=== PATIENT | female | born 1960 | race Caucasian/White ===

== ENCOUNTER → 2018-01-19 17:39 | Outpatient (CLI) | payer MEDICAID, SELFPAY ==
--- NOTE | 2018-01-19 17:39 | DT_ITS ---
This patient was seen during an EMR downtime January 16, 2018 - January 23, 2018. This patient may have a combination of paper and electronic documentation or all paper documentation. All documentation is viewable within the e-chart portion of [facility] for each patient visit.
--- NOTE | 2018-01-19 17:51 | RAD_ITS ---
STUDY: X-RAY - LUMBAR SPINE REASON FOR EXAM: Female, 57 years old. Lower back pain TECHNIQUE: 5 view(s) of the lumbar spine were obtained. COMPARISON: None FINDINGS: Normal lumbar lordosis. There is no substantial scoliosis. There is a normal alignment of the vertebrae. Stool throughout the colon. There are multiple metallic clips in the right upper quadrant. This is consistent for a cholecystectomy. Loss of intervertebral disc height at L5-S1. Vacuum disc phenomenon at L5-S1. There is bilateral facet arthropathy. There is multilevel endplate spondylosis of the lumbar vertebrae. There is multi-level degenerative disc disease with multi-level disc space narrowing. There are atherosclerotic vascular calcifications. The soft tissue structures are unremarkable. RAD/L/S Spine Min 4 Views IMPRESSION: Degenerative changes of the spine, as detailed above. Constipation Electronically Signed: Wayne Souza MD at 18:26 EDT , Service support ,
== END ==
PROVIDERS: Family Provider Internal Medicine; PCP Internal Medicine; Visit Provider Pain Medicine Interventional Pain Medicine
DX: M51.36 Other intervertebral disc degeneration, lumbar region (principal)
CPT/HCPCS: 72110

== ENCOUNTER 2018-01-20 22:25 | Emergency (ER) | payer MEDICAID, SELFPAY ==
--- NOTE | 2018-01-20 22:25 | DT_ITS ---
This patient was seen during an EMR downtime January 16, 2018 - January 23, 2018. This patient may have a combination of paper and electronic documentation or all paper documentation. All documentation is viewable within the e-chart portion of [facility] for each patient visit.
== END 2018-01-20 23:55 | disposition home or self-care (01) ==
LOC: ED 01-21 14:05
PROVIDERS: Emergency Provider Emergency Medicine; Family Provider Internal Medicine; PCP Internal Medicine
DX: H10.212 Acute toxic conjunctivitis, left eye (principal); N30.90 Cystitis, unspecified without hematuria; B96.89 Other specified bacterial agents as the cause of diseases classified elsewhere; I25.10 Atherosclerotic heart disease of native coronary artery without angina pectoris; I25.2 Old myocardial infarction; I10 Essential (primary) hypertension; F41.9 Anxiety disorder, unspecified; Z79.82 Long term (current) use of aspirin; Z79.899 Other long term (current) drug therapy; Z86.73 Personal history of transient ischemic attack (TIA), and cerebral infarction without residual deficits
CPT/HCPCS: 99284

== ENCOUNTER → 2018-10-16 14:11 | Outpatient (CLI) | payer MEDICAID, SELFPAY ==
[2018-10-16 08:29] VITALS: BMI 53.8
[2018-10-16 15:41] LABS: Mucous, Urine 0 SEEN /hpf (<or=2+)
[2018-10-16 16:00] LABS: Color, Urine Yellow (Yellow); Glucose, Dipstick Normal (Normal); Ketone-Dipstick Negative (Negative); Leukocyte Esterase-Dipstick 100 /ul (Negative); Nitrite-Dipstick Negative (Negative); Occult Blood-Urine 10 /ul (Negative); Protein-Dipstick Negative (Negative); Specific Gravity, Urine 1.015 (1.002-1.030); Urine Bilirubin Dipstick Negative (Negative); Urine Clarity Sl. Cloudy (Clear); Urine Urobilinogen Normal (Normal)
[2018-10-16 17:06] LABS: Red Blood Cells-Urine 0-5 SEEN /hpf (0-5); Squamous Epithelial Cells - UA 0-5 SEEN /hpf (5-10)
[2018-10-16 17:07] LABS: Bacteria 1+ /hpf (None Seen); White Blood Cells 10-25 SEEN /hpf (0-5)
== END ==
PROVIDERS: Family Provider Internal Medicine; PCP Internal Medicine; Referring Provider Physician Assistant; Visit Provider Physician Assistant
DX: R30.0 Dysuria (principal)
CPT/HCPCS: 81001; 87086

== ENCOUNTER 2019-12-01 13:27 | Emergency (ER) | payer MEDICAID, SELFPAY ==
[2018-10-16 08:29] VITALS: BMI 53.8
[2019-12-01 13:28] VITALS: BP 113/69; PULSE 69; RESP 18; TEMP 36.6; O2SAT 97; BMI 59.5
--- NOTE | 2019-12-01 13:42 | CT_ITS ---
STUDY: CT ABDOMEN AND PELVIS WITH CONTRAST REASON FOR EXAM: Female, 59 years old. RLQ pain x few days, nausea. Prior cholecystectomy, hypertension. RADIATION DOSAGE (If Supplied By Facility): CTDIvol = ( 40.91 ) mGy, DLP = ( 1956.19 ) mGycm TECHNIQUE: Transaxial images were obtained from the dome of the diaphragm to the symphysis pubis with oral contrast. Oral and amp; IV Gastrografin and amp; 100mL Isovue-370 was administered. Sagittal and coronal images were reconstructed. Individualized dose optimization techniques were used for this CT. COMPARISON: 09/07/2017. FINDINGS: The visualized lung bases are unremarkable. The visualized portions of the heart are within normal limits. There is decreased attenuation of the liver consistent with steatosis. There is hepatomegaly. There are surgical clips in the gallbladder fossa consistent with a prior cholecystectomy. There is moderate splenomegaly. Normal pancreas. Normal bilateral adrenal glands. Normal right kidney. Normal left kidney. Normal visualized stomach. Normal small intestine. Fecal retention throughout the colon. The appendix is visualized and appears normal. Normal abdominal aorta. Normal inferior vena cava. Normal retroperitoneum. Normal urinary bladder. Normal visualized uterus. Normal abdominal wall. There are diffuse degenerative changes of the visualized lumbar spine. CT/Abdomen/Pelvis WITH Contrast IMPRESSION: Hepatosplenomegaly. No definite acute abnormalities. Electronically Signed: Andrzej Holloway MD at 17:02 EDT , Service support ,
--- NOTE | 2019-12-01 13:43 | ED.VIS.GEN ---
History of Present Illness Chief Complaint: Abd Pain Informant: Patient Onset: Days Context: Gradual Onset - 3 days Timing: Waxes and wanes Current Severity: Mild Maximum Severity: Moderate Narrative: Patient presents from urgent care secondary to right lower quadrant abdominal pain. She states 3 days ago she developed more mid abdominal pain initially that she thought was just nausea. Pain is now localized more to the right lower quadrant. She denies fever but has had some mild chills. She has had decreased p.o. intake and decreased appetite. She was seen at urgent care where urine was tested and unremarkable. She was sent to the ER to rule out appendicitis. - Past Medical History (1) CVA (cerebral vascular accident) Status: Chronic (2) Dyslipidemia Status: Chronic (3) Hypertension Status: Chronic (4) Prediabetes Status: Chronic (5) Hx of cholecystectomy Status: Chronic Past Medical History - Allergies and Home Meds Allergies/Adverse Reactions: Allergies nitrofurantoin [From Macrobid] Allergy (Verified 12/01/19 13:28) Unknown propoxyphene [From Darvocet-N] Allergy (Verified 12/01/19 13:28) Unknown cefaclor [From Ceclor] Adverse Reaction (Verified 12/01/19 13:28) Other Primary Care Physician: Keila Sullivan MD [Primary Care Provider] - Prior records reviewed: Yes Smoking Status: Current every day smoker - Family History Paternal Family History: Family History (Last Updated 10/16/18 @ 08:32 by Esha Hardin) Other Cancer Heart disease Family History: Reports: Heart Disease - Her father had first VT in late 60s. Sibling Family History: Family History (Last Updated 10/16/18 @ 08:32 by Esha Hardin) Other Cancer Heart disease Family History: Reports: Heart Disease - Her 2 brothers had MIs in 50s. Review of Systems General: Denies: Chills, Fever Eyes: Denies: Visual changes - bilaterally ENT: Denies: Bilateral ear pain Cardiovascular: Denies: Chest pain Respiratory: Denies: Dyspnea, Cough Gastrointestinal: Reports: Abdominal pain, Nausea. Denies: Vomiting, Diarrhea Genitourinary: Denies: Dysuria, Hematuria Musculoskeletal: Denies: Extremity Pain Skin: Denies: Rash Neurological: Denies: Headache Hematologic: Denies: Easy bruising, Easy bleeding Allergy: Denies: Uticaria Physical Exam Vital Signs/Narrative: Vital Signs Temp Pulse Resp BP Pulse Ox 12/01/19 13:28 97.9 F 69 18 113/69 97 Inital Vital Signs reviewed: Yes General: Well nourished, Well developed Head: Normocephalic ENT: Moist mucous membranes Neck: Supple Cardiovascular: Regular rate, Regular rhythm Respiratory: No distress, CTA bilaterally Abdomen: Soft, Tender - Mild tenderness in the right lower quadrant., Hypoactive bowel sounds. Negative for: Guarding, Rebound tenderness Extremities: Nontender Skin: Normal color, No rash Neurological: Alert, Oriented x3 Psychological: Normal affect Diagnostic/Tx/Re-eval Impressions Abdomen/Pelvis CT 12/01/19 13:42 IMPRESSION: Hepatosplenomegaly. No definite acute abnormalities. Electronically Signed: Andrzej Holloway MD at 17:02 EDT , Service support , 12/01/19 13:42 Abdomen/Pelvis WITH Contrast [CT] Stat Laboratory Results 12/01/19 12/01/19 14:04 14:04 WBC 7.3 RBC 4.30 Hgb 10.7 L Hct 35.1 L MCV 81.6 MCH 24.9 L MCHC 30.5 L RDW Std Deviation 48.2 H RDW Coeff of Tracey 16.3 H Plt Count 223 MPV 9.2 Immature Gran % (Auto) 0.600 Neut % (Auto) 55.5 Lymph % (Auto) 33.0 [place] % (Auto) 9.4 Eos % (Auto) 1.2 Baso % (Auto) 0.3 Absolute Neuts (auto) 4.0 Absolute Lymphs (auto) 2.39 Nucleated RBC % 0 Sodium 140 Potassium 4.5 Chloride 106 Carbon Dioxide 28.0 Anion Gap 6 BUN 12 Creatinine 0.75 Estim Creat Clear Calc 77.57 Est GFR (MDRD) Af Amer 101 Est GFR (MDRD) Non-Af 84 BUN/Creatinine Ratio 16.0 Glucose 115 H Calcium 8.6 - Medical Decision Making Patient declined anything for pain while here. Urine was checked at the clinic and revealed no acute infection. Test results discussed with the patient. She will continue to follow bland diet. She will monitor for fever, worsening pain, vomiting, etc. If she continues to have any urinary symptoms she should have her urine rechecked in 3 days. ED Disposition - Plan for ED Patient: Disposition: Home or Assisted Living Diagnosis: Abdominal pain Instructions: ED Abdominal Pain Unkn Cause Fem Referrals: Keila Sullivan MD [Primary Care Provider] - 3-5 Days if not improving
[2019-12-01] MEDS: 0.9% Normal Saline 1,000 ML 150 ML IV (14:03)
[2019-12-01 14:08] LABS: Absolute Lymphocyte Count 2.39 X10^3/uL (0.83-4.51); Basophil# 0.02 X10^3/uL; Basophil% 0.3 % (0-1); Eosinophil# 0.09 X10^3/uL; Eosinophils% 1.2 % (0-5); Hematocrit 35.1 % (37-47); Hemoglobin 10.7 g/dL (12.0-15.0); Lymphocyte # 2.39 X10^3/ul (4.0); Mean Corp Hgb Conc 30.5 g/dL (32-36); Mean Corpuscular Hgb 24.9 pg (27.0-32.0); Mean Corpuscular Volume 81.6 fL (81-99); Mean Platelet Vol. 9.2 fl (6.2-12.0); Monocyte# 0.68 X10^3/uL; Monocyte% 9.4 % (0-10); NRBC Flagged by Analyzer 0 % (0-5); Neutrophil # 4.03 X10^3/uL (2.7-7.7); Neutrophil % 55.5 % (47-70); Platelet Count 223 K/mm3 (150-450); RBC Distribution Width CV 16.3 % (11.6-14.6); RBC Distribution Width SD 48.2 fl (35.1-43.9); White Blood Count 7.3 K/mm3 (4.4-11.0)
[2019-12-01 14:21] LABS: Anion Gap 6 (5-15); BUN 12 mg/dL (7-18); Calcium,Total 8.6 mg/dL (8.5-10.1); Chloride 106 mmol/L (98-107); Creatinine, Serum 0.75 mg/dL (0.55-1.02); EST Glomerular Filtration Rate 84 mL/min (>60); Est Glom Filt Rate - Afr Amer 101 mL/min (>60); Estimated Creatinine Clearance 77.57 ml/min; Glucose 115 mg/dL (74-106); Potassium 4.5 mmol/L (3.5-5.1); Sodium Level 140 mmol/L (136-145)
[2019-12-01 15:48] VITALS: RESP 16
[2019-12-01 17:14] VITALS: BP 101/70; PULSE 66; RESP 16; RESP 18; O2SAT 97
--- NOTE | 2019-12-01 17:16 | ED.RN ---
REVIEWED D/C INSTRUCTIONS, FOLLOW UP CARE, AND S/S THAT WOULD WARRANT A RETURN TO THE ED WITH PT. PT VERBALIZED AN UNDERSTANDING AND DENIES FURTHER QUESTIONS FOR THIS RN. PT SKIN P/W/D, RESP EVEN AND UNLABORED, PT A&O X 3, NO DISTRESS NOTED. PT AMBULATED OUT OF ED, GAIT STEADY.
== END 2019-12-01 17:20 | disposition home or self-care (01) ==
PROVIDERS: Emergency Provider Emergency Medicine; PCP Internal Medicine
DX: R10.31 Right lower quadrant pain (principal); I10 Essential (primary) hypertension; E78.5 Hyperlipidemia, unspecified; R73.03 Prediabetes; F17.200 Nicotine dependence, unspecified, uncomplicated; Z90.49 Acquired absence of other specified parts of digestive tract; Z86.73 Personal history of transient ischemic attack (TIA), and cerebral infarction without residual deficits
CPT/HCPCS: 74177; 80048; 85025; 96360; 96361; 99283; J7030; Q9967; A4216

== ENCOUNTER → 2021-07-02 16:06 | Outpatient (CLI) | payer MEDICAID, SELFPAY ==
--- NOTE | 2021-07-02 16:12 | EKG12_ITS ---
Test Reason : EVALUATE QT INTERVAL Blood Pressure : / mmHG Vent. Rate : 062 BPM Atrial Rate : 062 BPM P-R Int : 192 ms QRS Dur : 080 ms QT Int : 400 ms P-R-T Axes : 055 -02 025 degrees QTc Int : 406 ms Normal sinus rhythm Normal ECG Confirmed by PATTIE SEPULVEDA, ROOSEVELT ([id number]), social media editor [employer]ST[employer] PIERSON ([id number]) on 07/03/2021 1:51:10 P M Referred By: Kenneth Mccracken Confirmed By:PIERRE BLANKENSHIP MD
== END ==
PROVIDERS: PCP Internal Medicine; Referring Provider Pain Medicine Interventional Pain Medicine; Visit Provider Pain Medicine Interventional Pain Medicine
DX: Z13.6 Encounter for screening for cardiovascular disorders (principal)
CPT/HCPCS: 93005

== ENCOUNTER 2021-08-14 10:54 | Emergency (ER) | payer MEDICAID, SELFPAY ==
[2021-08-14 10:54] VITALS: BP 109/53; PULSE 67; RESP 20; TEMP 37.4; O2SAT 97; BMI 49.3
[2021-08-14 11:52] VITALS: O2SAT 94
--- NOTE | 2021-08-14 12:02 | RAD_ITS ---
STUDY: X-RAY CHEST REASON FOR EXAM: Female, 61 years old. Cough. TECHNIQUE: Single AP portable view of the chest. COMPARISON: 01/20/2017. FINDINGS: The lungs are clear and expanded. There is no demonstrated pleural abnormality. Normal size heart. Normal mediastinum and katie. Normal visualized pulmonary arteries. Mild tortuosity of the thoracic aorta. No demonstrated acute osseous changes. There is no demonstrated abnormality of the visualized soft tissue structures of the upper abdomen. RAD/Chest 1 View (Portable) IMPRESSION: No active pulmonary disease. Electronically Signed: Wang Ramos, at 12:48 EST Tel , Service support ,
--- NOTE | 2021-08-14 12:02 | EX.ED.VIS.UR ---
HPI HPI - URI History of Present Illness Chief Complaint: Shortness of Breath Detail of Chief Complaint: Cough, fever, shortness of breath Informant: patient Narrative Narrative: Patient presents to the emergency department with 3-day history of Covid symptoms. Patient states that she has been taking care of her daughter who had Covid. Patient is fully vaccinated but has not had her booster. Patient has history of sarcoid and obstructive sleep apnea as well as hypertension. She complains of pain in her chest with cough. Patient complains of sore throat and intermittent headaches. She complains of intermittent fever and myalgias. Prior similar symptoms: No ROS ROS ED Constitutional Constitutional ED: Reports systems reviewed and no addt'l complaints, except as documented, chills, fever(s) and sweats; Denies body ache(s) or change in weight Eyes Eyes: Denies acute decrease in peripheral vision, change in vision, double vision or loss of vision ENT ENT ED: Reports none; Denies ear pain, lip swelling, loss taste/smell, neck pain, otalgia or sore throat Cardiovascular Cardiovascular: Reports none and chest pain; Denies abdominal pain, chest pain with activity, leg edema, lightheadedness, palpitations, rapid heart rate or syncope Respiratory/Chest Respiratory/Chest: Reports none, cough and dyspnea; Denies change in mental status, dry cough, hemoptysis, shortness of breath at rest or shortness of breath with exertion Gastrointestinal Gastrointestinal: Reports none; Denies abdominal pain, change in stool character, diarrhea, hematemesis, hematochezia, melena, rectal bleeding or vomiting Genitourinary Genitourinary ED: Reports none; Denies abdominal discomfort, anuria, dysuria, genital pain or polyuria Musculoskeletal Musculoskeletal: Reports none and myalgias; Denies arthralgias, back pain, difficulty walking, extremity pain or muscle weakness Integumentary Reports none; Denies abscess or rash Neurologic Neurologic: Reports none and headache(s); Denies abnormal gait, confusion, focal weakness, frequent falls, loss of vision, numbness, paresthesias, radicular pain, vertigo or weakness Psychiatric Psychiatric: Reports systems reviewed and no addt'l complaints, except as documented and none; Denies behavioral changes, confusion, difficulty concentrating, hallucinations, suicidal ideation, tactile hallucinations or visual hallucinations Endocrine Endocrinology: Denies none, cold intolerance, excessive sweating, fatigue or heat intolerance Hematologic/Lymphatic Hematologic/Lymphatic: Reports none; Denies anemia, easy bleeding or easy bruising Allergic/Immunologic Allergic/Immunologic ED: Denies as per HPI, none, lip swelling, mouth swelling, throat swelling, tongue swelling or hives PFSH [facility] Medical History (Updated 08/14/21 @ 13:[address] Olivier Hope, DO) Chronic neck and back pain Heart disease Hypertension Incontinence Knee pain Lung disease Stomach ulcer Stroke Home Medications Omeprazole [Prilosec] 40 mg PO DAILY 11/29/16 [History Last Taken Unknown] acyclovir [Zovirax] 400 mg PO BID PRN 11/29/16 [History Last Taken Unknown] bupropion HCl [Wellbutrin XL] 150 mg PO QHS 11/29/16 [History Last Taken Unknown] hydrocodone-acetaminophen [[place]] 1 ea PO TID PRN 11/29/16 [History Last Taken Unknown] lisinopril 20 mg PO DAILY 11/29/16 [History Last Taken Unknown] lorazepam 1 mg PO DAILY PRN PRN 11/29/16 [History Last Taken Unknown] methadone 10 mg PO TID 11/29/16 [History Last Taken Unknown] oxybutynin chloride 5 mg PO BID 11/29/16 [History Last Taken Unknown] paroxetine HCl 20 mg PO DAILY 11/29/16 [History Last Taken Unknown] promethazine 25 mg PO Q6H PRN PRN 11/29/16 [History Last Taken 01/19/17 23:00] ondansetron 4 mg PO Q8H PRN PRN #10 tab 01/20/17 [Rx Last Taken Unknown] phenazopyridine 100 mg PO TID PRN 01/20/17 [History Last Taken 01/20/17] aspirin 81 mg PO QHS 06/17/17 [History Last Taken Unknown] Propranolol Hcl [Propranolol Hcl Er] 60 mg PO DAILY 12/01/19 [History Last Taken Unknown] benzonatate 200 mg PO TID PRN 12/01/19 [History Last Taken Unknown] furosemide 20 mg PO DAILY PRN 12/01/19 [History Last Taken Unknown] ipratropium-albuterol 3 ml INHALATION Q4H PRN PRN 12/01/19 [History Last Taken Unknown] magnesium chloride 2 tab PO DAILY 12/01/19 [History Last Taken Unknown] mupirocin 1 applic TOPICAL TID 12/01/19 [History Last Taken Unknown] potassium chloride 10 meq PO DAILY PRN 12/01/19 [History Last Taken Unknown] Allergy/AdvReac Type Severity Reaction Status Date / Time nitrofurantoin Allergy Unknown Verified 08/14/21 10:58 [From Macrobid] propoxyphene Allergy Unknown Verified 08/14/21 10:58 [From Darvocet-N] cefaclor [From Ceclor] AdvReac Other Verified 08/14/21 10:58 Family History (Updated 10/16/18 @ 08:32 by Esha Hardin) Other Cancer Heart disease Surgical History History of cholecystectomy History of hysterectomy History of knee surgery Social History (Updated 10/16/18 @ 08:51 by Duncan SLAUGHTER, PA) Smoking Status: Current every day smoker tobacco type: cigarettes EXAM Physical Exam Const Vital Signs: 08/14/21 10:54 08/14/21 11:52 08/14/21 12:18 Temperature 99.4 F H 98.9 F Temperature Source Oral Temporal Pulse Rate 67 63 Respiratory Rate 20 H 26 H Respiratory Effort Normal Non-Labored Respiratory Depth Normal Respiratory Pattern Normal Blood Pressure 109/53 L 120/81 H Blood Pressure Mean 71 94 Pulse Ox 97 95 Oxygen Delivery Method Room Air Room Air Room Air Positive well nourished and well developed General Appearance ED: well developed and NAD HEENT Reports TM's clear and moist mucous membranes normocephalic and atraumatic; Negative for trauma or tenderness Tympanic Membrane ED: Yes TM's clear Eyes PERRL and EOMs intact bilaterally General Eye ED: Negative for pale conjunctiva or scleral icterus Neck no lymphadenopathy, supple and no JVD General: Negative for tenderness Chest Wall inspection of chest normal and palpation of chest normal Chest: Negative for tenderness Resp normal respiratory effort and clear to auscultation bilaterally Effort and Inspection: Negative for respiratory distress or pain with movement Auscultation: Negative for rhonchi, wheezes or diminished lung sounds Cardio regular rate, regular rhythm, S1 normal heart sound, S2 normal heart sound and no murmurs Peripheral Pulses: pulses 2+ throughout GI normal to inspection, nondistended, normoactive bowel sounds, soft to palpation, non-tender, non-distended and no masses GI Narrative: Patient morbidly obese Back/Spine no CVA tenderness and no thoracic nor lumbar tenderness Extremity normal to inspection General Extremety ED: Negative for edema General Extremity: Negative for edema Neuro oriented x3, CN's II-XII intact bilaterally, no sensory deficits noted and gait normal Sensorium / Orientation: awake, alert, oriented to person, oriented to place and oriented to time Motor Exam: strength 5/5 throughout and strength abnormal Psych mental status grossly normal Skin no rashes or lesions noted and no wounds MDM MDM MDM Narrative Medical decision making narrative: Patient had a Covid test that was positive. Her chest x-ray was unremarkable. Her vital signs are stable and she is not hypoxic. I feel she can be referred for monoclonal antibodies and discharged to home. Patient advised to return if increasing shortness of breath or conditions worsen anyway. Lab Data Attestation: I reviewed the patient's lab results. Radiography Diagnostic Testing: Clinical Impression(s) from Imaging Studies Chest X-Ray 08/14/21 12:02 IMPRESSION: No active pulmonary disease. Electronically Signed: Wang Ramos, at 12:48 EST Tel , Service support , 1 view chest x-ray obtained interpreted by myself as no acute disease process. Radiology in agreement. Discharge Plan Triage Chief Complaint: Shortness of Breath ED Provider: Olivier Hope Dx/Rx/DC Orders Clinical Impression: COVID-19 Instructions: ED - COVID Monoclonal AB Infusion ..., Caring for Someone Who Has COVID-19 Prescriptions: No Action methadone 10 MG tablet 10 mg PO TID RF: 0 lisinopril 20 MG tablet 20 mg PO DAILY RF: 0 acyclovir [Zovirax] 400 MG tablet 400 mg PO BID PRN (Reason: Not Specified) RF: 0 hydrocodone-acetaminophen [[place]] 1 TABLET tablet 1 ea PO TID PRN (Reason: Pain) RF: 0 paroxetine HCl 20 MG tablet 20 mg PO DAILY RF: 0 promethazine 25 MG tablet 25 mg PO Q6H PRN PRN (Reason: Nausea) RF: 0 lorazepam 1 MG tablet 1 mg PO DAILY PRN PRN (Reason: Anxiety) RF: 0 oxybutynin chloride 5 MG tablet 5 mg PO BID RF: 0 bupropion HCl [Wellbutrin XL] 150 MG Tab.Er.24h 150 mg PO QHS RF: 0 Omeprazole [Prilosec] 40 MG capsule 40 mg PO DAILY RF: 0 phenazopyridine 100 MG tablet 100 mg PO TID PRN (Reason: URINE ISSUES) RF: 0 ondansetron 4 MG tablet 4 mg PO Q8H PRN PRN (Reason: Nausea) Qty: 10 RF: 0 aspirin 81 MG tablet 81 mg PO QHS RF: 0 potassium chloride 10 MEQ capsule, extended release 10 meq PO DAILY PRN (Reason: LOW POTASSIUM) RF: 0 ipratropium-albuterol 3 ML solution for nebulization 3 ml inhalation Q4H PRN PRN (Reason: Sob &/Or Wheezing) RF: 0 benzonatate 200 MG capsule 200 mg PO TID PRN (Reason: Cough) RF: 0 mupirocin 1 APPLIC ointment 1 applic topical TID RF: 0 furosemide 20 MG tablet 20 mg PO DAILY PRN (Reason: EDEMA) RF: 0 magnesium chloride 71.5 MG tablet,delayed release (DR/EC) 2 tab PO DAILY RF: 0 Propranolol Hcl [Propranolol Hcl Er] 60 MG Cap.Sa.24h 60 mg PO DAILY RF: 0 Primary Care Provider: Keila Sullivan Referrals: Keila Sullivan MD [Primary Care Provider] - 5-7 Days Disposition Disposition: Home, Self Care
[2021-08-14 12:18] VITALS: BP 120/81; PULSE 63; RESP 26; TEMP 37.2; O2SAT 95
[2021-08-14 13:28] VITALS: BP 100/50; PULSE 68; RESP 23; O2SAT 95
[2021-08-14 13:29] VITALS: BP 100/50; PULSE 68; RESP 23; O2SAT 95
== END 2021-08-14 13:29 | disposition home or self-care (01) ==
PROVIDERS: Emergency Provider Emergency Medicine; PCP Internal Medicine
DX: U07.1 COVID-19 (principal); I11.9 Hypertensive heart disease without heart failure; F17.210 Nicotine dependence, cigarettes, uncomplicated; Z79.82 Long term (current) use of aspirin; Z79.899 Other long term (current) drug therapy
CPT/HCPCS: 71045; 87426; 99282

== ENCOUNTER 2021-08-17 13:14 | Outpatient (CLI) | payer MEDICAID, SELFPAY ==
[2021-08-17] MEDS: 0.9% Saline Lock 10 ML Syringe IV (13:26)
[2021-08-17 13:28] VITALS: BP 113/53; PULSE 73; RESP 20; TEMP 36.8; O2SAT 94; BMI 54.8
[2021-08-17 13:57] VITALS: BP 108/61; PULSE 62; RESP 16; TEMP 36.8; O2SAT 95
[2021-08-17 15:06] VITALS: BP 119/62; PULSE 59; RESP 16; TEMP 37.1; O2SAT 94
== END 2021-08-17 23:59 | disposition home or self-care (01) ==
LOC: MS3OUT 13:14 → MS3 13:16
PROVIDERS: PCP Internal Medicine; Referring Provider Emergency Medicine; Visit Provider Emergency Medicine
DX: U07.1 COVID-19 (principal)
CPT/HCPCS: J7050; M0243; A4216; Q0244

== ENCOUNTER 2021-09-27 21:07 | Emergency (ER) | payer MEDICAID, SELFPAY ==
[2021-09-27 21:08] VITALS: BP 130/66; PULSE 65; RESP 17; TEMP 36.1; O2SAT 95; BMI 54.8
--- NOTE | 2021-09-27 21:21 | EKG12_ITS ---
Test Reason : DYSRYTHMIA Blood Pressure : / mmHG Vent. Rate : 058 BPM Atrial Rate : 058 BPM P-R Int : 192 ms QRS Dur : 086 ms QT Int : 434 ms P-R-T Axes : 002 007 027 degrees QTc Int : 426 ms Sinus bradycardia Nonspecific T wave abnormality Abnormal ECG Confirmed by JOHNNA SEPULVEDA, JOHNNY ([id number]), editor trade journal [employer]ST[employer] PIERSON ([id number]) on 09/29/2021 12:53:39 PM Referred By: RUTH Confirmed By:JOHNNY OROPEZA MD
--- NOTE | 2021-09-27 21:22 | EDS_ITS ---
HPI History of Present Illness Chief Complaint: Edema Narrative Narrative: Patient with past medical history of hypertension, chronic back pain. Was diagnosed with Covid over a month ago, and has morbid obesity presents with swelling of her legs that she noticed today. She states that she had swelling of her legs previously and used to take Lasix on occasion. She was going to take a tablet today even though she has not had to take that in quite some time. She also noticed that her left lower extremity was slightly reddened. She denies any fevers or chills. She has consistent cough from her Covid diagnosis of over a month ago. Additionally, she states that she does not feel any more short of breath. She denies history of CHF. She is concerned because both her legs have swollen up, and the left one has become slightly reddened. [facility] Medical History Chronic neck and back pain COVID COVID-19 Heart disease Hypertension Incontinence Knee pain Lung disease Stomach ulcer Stroke Home Medications Omeprazole [Prilosec] 40 mg PO DAILY 11/29/16 [History Last Taken Unknown] acyclovir [Zovirax] 400 mg PO BID PRN 11/29/16 [History Last Taken Unknown] bupropion HCl [Wellbutrin XL] 150 mg PO QHS 11/29/16 [History Last Taken Unknown] hydrocodone-acetaminophen [Fulton] 1 ea PO TID PRN 11/29/16 [History Last Taken Unknown] lisinopril 20 mg PO DAILY 11/29/16 [History Last Taken Unknown] lorazepam 1 mg PO DAILY PRN PRN 11/29/16 [History Last Taken Unknown] methadone 10 mg PO TID 11/29/16 [History Last Taken Unknown] oxybutynin chloride 5 mg PO BID 11/29/16 [History Last Taken Unknown] paroxetine HCl 20 mg PO DAILY 11/29/16 [History Last Taken Unknown] promethazine 25 mg PO Q6H PRN PRN 11/29/16 [History Last Taken 01/19/17 23:00] ondansetron 4 mg PO Q8H PRN PRN #10 tab 01/20/17 [Rx Last Taken Unknown] phenazopyridine 100 mg PO TID PRN 01/20/17 [History Last Taken 01/20/17] aspirin 81 mg PO QHS 11/03/17 [History Last Taken Unknown] Propranolol Hcl [Propranolol Hcl Er] 60 mg PO DAILY 12/01/19 [History Last Taken Unknown] benzonatate 200 mg PO TID PRN 12/01/19 [History Last Taken Unknown] furosemide 20 mg PO DAILY PRN 12/01/19 [History Last Taken Unknown] magnesium chloride 2 tab PO DAILY 12/01/19 [History Last Taken Unknown] potassium chloride 10 meq PO DAILY PRN 12/01/19 [History Last Taken Unknown] furosemide 20 mg PO DAILY #5 tab 09/27/21 [Rx Last Taken Unknown] Allergy/AdvReac Type Severity Reaction Status Date / Time nitrofurantoin Allergy Unknown Verified 08/14/21 10:58 [From Macrobid] propoxyphene Allergy Unknown Verified 08/14/21 10:58 [From Darvocet-N] cefaclor [From Ceclor] AdvReac Other Verified 08/14/21 10:58 Family History Mother Cancer Father Cancer Heart disease Myocardial infarction Brother Heart disease Myocardial infarction Surgical History History of cholecystectomy History of hysterectomy History of knee surgery Social History Smoking Status: Current every day smoker tobacco type: cigarettes ROS ROS ED ROS Narrative Constitutional: No fever, no chills. HEENT: No sore throat. No neck pain. No loss of vision. No rhinorrhea. Cardiovascular: No chest pain. No palpitations. Adderall pedal edema. Respiratory: No cough, no shortness of breath. Abdominal: No abdominal pain. No nausea. No vomiting. Genitourinary: No dysuria. No hematuria. Musculoskeletal: No myalgias. No arthralgias. Neurologic: No headaches. No dizziness. No lightheadedness. Skin: No rash. Positive redness/change in color left lower extremity below knee. Psychiatric: No depression. No anxiety. EXAM Physical Exam Narrative Exam Narrative: Afebrile. Vital signs noted. HEENT: Normocephalic. Atraumatic. PERRL, EOMI. Neck soft and supple. No point tenderness or step off. Cardiovascular: Regular rate and rhythm. No murmurs, rubs, or gallops appreciated. Respiratory: No tachypnea. Lungs clear to auscultation bilaterally. Gastrointestinal: Abdomen soft, obese, nontender, with normoactive bowel sounds. No rebound or guarding. Neurological: Awake. Alert. Nonfocal, nonlateralizing. Skin: No rash. Normal color. No pallor. Beginnings of chronic skin changes left lower extremity, nonblanching, mildly erythematous Musculoskeletal: Bilateral pedal edema. Full range of motion extremities. Const Vital Signs: 09/27/21 21:08 09/27/21 21:16 09/27/21 23:45 Temperature 96.9 F L Temperature Source Temporal Pulse Rate 65 85 Respiratory Rate 17 15 Respiratory Effort Normal Respiratory Pattern Normal Blood Pressure 130/66 H Blood Pressure Mean 87 Pulse Ox 95 99 Oxygen Delivery Method Room Air MDM MDM MDM Narrative Medical decision making narrative: CHF work-up was pursued as this is new for her. I will obtain an EKG, troponin, basic laboratory work, and BNP along with chest x-ray. This may be the beginnings of cellulitis of her left lower extremity. EKG demonstrates normal sinus rhythm at 50 bpm without ectopy or acute ST changes. I read her chest x-ray has no acute process. She has normal white count of 6.0. Hemoglobin stable at 11.8, platelet count normal at 200. Electrolyte panel is grossly unremarkable. Potassium normal at 4.6. Creatinine normal at 0.9. High-sensitivity troponin is normal at 4. BNP is also normal at 43. Upon repeat evaluation, the redness of her left lower extremity is not confluent, not consistent with cellulitis. Additionally, there are more punctate lesions that are nonblanching. I do think that this may be more broken capillaries. I do feel she may be developing chronic skin changes from her lymphedema. She states that she is supposed to be wearing compression stockings but is not. I will give her 5 days worth of Lasix which she takes whenever she has swelling of her legs, but she was told that this may be secondary to chronic venous insufficiency versus obesity. I do not feel antibiotics are indicated. Her daughter was concerned more with the possibility of blood clots. However, her swelling is symmetric. Regardless, she was written a prescription for bilateral lower extremity Dopplers as on outpatient. She states that she has potassium supplementation at home. She was told to take this along with her magnesium when she is taking Lasix for the next 5 days. She will follow up with her primary care physician. I feel she can be discharged safely home with follow-up. Return instructions to the emergency department were reviewed. Disposition is discharged home in stable condition. Lab Data Attestation: I reviewed the patient's lab results. Labs: Laboratory Results - last 24 hr 09/27/21 09/27/21 09/27/21 21:39 21:39 21:39 WBC 6.0 RBC 4.24 Hgb 11.8 L Hct 36.2 L MCV 85.4 MCH 27.8 MCHC 32.6 RDW Std Deviation 40.8 RDW Coeff of Tracey 13.3 Plt Count 200 MPV 9.3 Immature Gran % (Auto) 0.800 Neut % (Auto) 48.1 Lymph % (Auto) 36.6 Teller % (Auto) 9.8 Eos % (Auto) 4.0 Baso % (Auto) 0.7 Absolute Neuts (auto) 2.9 Absolute Lymphs (auto) 2.19 Nucleated RBC % 0 Sodium 137 Potassium 4.6 Chloride 107 Carbon Dioxide 25.0 Anion Gap 5 BUN 17 Creatinine 0.90 Estim Creat Clear Calc 63.03 Est GFR (MDRD) Af Amer 82 Est GFR (MDRD) Non-Af 67 BUN/Creatinine Ratio 18.9 Glucose 121 H Calcium 8.9 Troponin I High Sens 4 B-Natriuretic Peptide 43.9 Radiography Diagnostic Testing: Clinical Impression(s) from Imaging Studies Chest X-Ray 09/27/21 21:40 IMPRESSION: 1. Subtle increased attenuation right lower lobe with somewhat linear opacity suspected to represent atelectasis with mild asymmetric right sided asymmetric diaphragm elevation. Infectious etiology is not completely excluded. Electronically Signed: Parag Flores DO at 0:14 EST , Discharge Plan Triage Chief Complaint: Edema ED Provider: Memo Kitchen Dx/Rx/DC Orders Clinical Impression: Pedal edema, Lymphedema due to venous insufficiency, Lymphedema associated with obesity Instructions: ED Peripheral Edema, Bilateral, ED Lymphedema Prescriptions: New furosemide 20 mg tablet 20 mg PO DAILY Qty: 5 RF: 0 No Action methadone 10 MG tablet 10 mg PO TID RF: 0 lisinopril 20 MG tablet 20 mg PO DAILY RF: 0 acyclovir [Zovirax] 400 MG tablet 400 mg PO BID PRN (Reason: Not Specified) RF: 0 hydrocodone-acetaminophen [Fulton] 1 TABLET tablet 1 ea PO TID PRN (Reason: Pain) RF: 0 paroxetine HCl 20 MG tablet 20 mg PO DAILY RF: 0 promethazine 25 MG tablet 25 mg PO Q6H PRN PRN (Reason: Nausea) RF: 0 lorazepam 1 MG tablet 1 mg PO DAILY PRN PRN (Reason: Anxiety) RF: 0 oxybutynin chloride 5 MG tablet 5 mg PO BID RF: 0 bupropion HCl [Wellbutrin XL] 150 MG tablet extended release 24 hr 150 mg PO QHS RF: 0 Omeprazole [Prilosec] 40 MG capsule 40 mg PO DAILY RF: 0 phenazopyridine 100 MG tablet 100 mg PO TID PRN (Reason: URINE ISSUES) RF: 0 ondansetron 4 MG tablet 4 mg PO Q8H PRN PRN (Reason: Nausea) Qty: 10 RF: 0 aspirin 81 MG tablet 81 mg PO QHS RF: 0 potassium chloride 10 MEQ capsule, extended release 10 meq PO DAILY PRN (Reason: LOW POTASSIUM) RF: 0 benzonatate 200 MG capsule 200 mg PO TID PRN (Reason: Cough) RF: 0 furosemide 20 MG tablet 20 mg PO DAILY PRN (Reason: EDEMA) RF: 0 magnesium chloride 71.5 MG tablet,delayed release (DR/EC) 2 tab PO DAILY RF: 0 Propranolol Hcl [Propranolol Hcl Er] 60 MG Cap.Sa.24h 60 mg PO DAILY RF: 0 Other Ambulatory Orders: US Art Duplex Bilat Lower Ext (Routine) Facility: [facility] - Location: [facility] Ordered By: Memo Kitchen Primary Care Provider: Keila Sullivan Referrals: Keila Sullivan MD [Primary Care Provider] - 1-2 Weeks Disposition Disposition: Home, Self Care Discharge Date/Time: 09/27/21 23:46
--- NOTE | 2021-09-27 21:40 | RAD_ITS ---
INDICATION: shortness of breath EXAMINATION/TECHNIQUE: X-RAY - XR Chest 1 View COMPARISON: 08/14/2021 chest X-ray FINDINGS: LINES/DEVICES: None. LUNGS: Subtle increased attenuation right lower lobe with linear opacity may represent atelectasis with note of mild asymmetric elevation right hemidiaphragm compared to the left. Lungs otherwise clear. Normal pulmonary interstitial pattern. No nodule or mass. No pleural effusion or pneumothorax. MEDIASTINUM AND CARDIOVASCULAR STRUCTURES: Normal size and contour of the cardiomediastinal silhouette. No evidence of pulmonary vascular congestion. BONES AND SOFT TISSUES: No abnormality within limits of the exam. RAD/Chest 1 View (Portable) IMPRESSION: 1. Subtle increased attenuation right lower lobe with somewhat linear opacity suspected to represent atelectasis with mild asymmetric right sided asymmetric diaphragm elevation. Infectious etiology is not completely excluded. Electronically Signed: Parag Flores DO at 0:14 EST ,
[2021-09-27] MEDS: Furosemide 40 MG/4 ML Vial IV (22:06)
[2021-09-27 22:11] LABS: Absolute Lymphocyte Count 2.19 X10^3/uL (0.83-4.51); Absolute Neutrophil Count 2.9 X10^3/uL (2.0-7.7); Basophil# 0.04 X10^3/uL; Basophil% 0.7 % (0-1); Eosinophil# 0.24 X10^3/uL; Hematocrit 36.2 % (37-47); Hemoglobin 11.8 g/dL (12.0-15.0); Lymphocyte # 2.19 X10^3/ul (0.83-4.51); Lymphocyte % 36.6 % (19-41); Mean Corp Hgb Conc 32.6 g/dL (32-36); Mean Corpuscular Hgb 27.8 pg (27.0-32.0); Mean Corpuscular Volume 85.4 fL (81-99); Mean Platelet Vol. 9.3 fl (6.2-12.0); Monocyte# 0.59 X10^3/uL; Monocyte% 9.8 % (0-10); NRBC Flagged by Analyzer 0 % (0-5); Neutrophil # 2.88 X10^3/uL (2.7-7.7); Neutrophil % 48.1 % (47-70); Platelet Count 200 K/mm3 (150-450); RBC Distribution Width CV 13.3 % (11.6-14.6); RBC Distribution Width SD 40.8 fl (35.1-43.9); Red Blood Count 4.24 M/mm3 (4.2-5.4)
[2021-09-27 22:15] LABS: Anion Gap 5 (5-15); BUN 17 mg/dL (7-18); BUN/Creat Ratio 18.9 RATIO (10-20); Calcium,Total 8.9 mg/dL (8.5-10.1); Chloride 107 mmol/L (98-107); EST Glomerular Filtration Rate 67 mL/min (>60); Est Glom Filt Rate - Afr Amer 82 mL/min (>60); Estimated Creatinine Clearance 63.03 ml/min; Glucose 121 mg/dL (74-106); Potassium 4.6 mmol/L (3.5-5.1); Sodium Level 137 mmol/L (136-145); Troponin-I HS 4 pg/mL (3.0-54.0)
[2021-09-27 22:29] LABS: BNP,B-Type NATRIURETIC PEPTIDE 43.9 pg/mL (0-100)
[2021-09-27 23:45] VITALS: PULSE 85; RESP 15; O2SAT 99
== END 2021-09-27 23:46 | disposition home or self-care (01) ==
PROVIDERS: Emergency Provider Emergency Medicine; PCP Internal Medicine; Visit Provider Emergency Medicine
DX: I87.2 Venous insufficiency (chronic) (peripheral) (principal); E66.01 Morbid (severe) obesity due to excess calories; Z68.43 Body mass index [BMI] 50.0-59.9, adult; I89.0 Lymphedema, not elsewhere classified; I11.9 Hypertensive heart disease without heart failure; R06.02 Shortness of breath; F17.210 Nicotine dependence, cigarettes, uncomplicated; Z79.82 Long term (current) use of aspirin; Z79.899 Other long term (current) drug therapy; Z86.16 Personal history of COVID-19; Z86.73 Personal history of transient ischemic attack (TIA), and cerebral infarction without residual deficits
CPT/HCPCS: 71045; 80048; 83880; 84484; 85025; 93005; 96374; 99285; A4216; J1940

== ENCOUNTER 2022-09-25 19:52 | Emergency (ER) | payer MEDICAID, SELFPAY ==
[2022-09-25 19:52] VITALS: BP 168/76; PULSE 84; RESP 16; TEMP 36.6; O2SAT 97; BMI 57.9
[2022-09-25] MEDS: DiphenhydrAMINE 25 MG Capsule PO (20:45)
[2022-09-25 20:52] LABS: Bacteria 0 SEEN /hpf (None Seen); Mucous, Urine 0 SEEN /hpf (<or=2+); Red Blood Cells-Urine 0 SEEN /hpf (0-5); Squamous Epithelial Cells - UA 0 SEEN /hpf (5-10)
--- NOTE | 2022-09-25 20:54 | RAD_ITS ---
STUDY: X-RAY CHEST REASON FOR EXAM: Female, 62 years old. cough TECHNIQUE: Single frontal view of the chest. COMPARISON: September 27, 2021 FINDINGS: The lungs are clear and expanded. There is no demonstrated pleural abnormality. Normal size heart. Normal mediastinum and katie. Normal visualized pulmonary arteries. Normal visualized aortic arch and descending thoracic aorta. Normal visualized thoracic spine. Normal visualized ribs, clavicles, and shoulders. There is no demonstrated abnormality of the visualized soft tissue structures of the upper abdomen. RAD/Chest PA and Lateral IMPRESSION: Normal x-ray examination of the chest. Electronically Signed: Perfecto Coronado MD at 21:13 EST ,
[2022-09-25 20:55] LABS: Color, Urine Yellow (Yellow); Glucose, Dipstick Normal (Normal); Ketone-Dipstick Negative (Negative); Leukocyte Esterase-Dipstick 100 /ul (Negative); Nitrite-Dipstick Negative (Negative); Occult Blood-Urine Negative /ul (Negative); Protein-Dipstick Negative (Negative); Urine Bilirubin Dipstick Negative (Negative); Urine Clarity Clear (Clear); Urine Urobilinogen Normal (Normal); Urine pH 6.5 (5.0 - 8.0)
--- NOTE | 2022-09-25 21:00 | EX.ED.DYSGE1 ---
HPI <STEPHANIE Arriaga - Last Filed: 09/25/22 21:25> History of Present Illness Chief Complaint: General Illness Narrative Narrative: 62-year-old female with history of obesity, hypertension, prediabetes, hyperlipidemia presents to the [facility] with 3 days of cough, congestion. Patient is also concerned that she might have a UTI or yeast infection. Patient states that when she wipes it is irritated. Patient states that she has been coughing with yellow to clear sputum production. She denies any nausea or vomiting. Patient has subjective fever and chills. She denies any sick contacts. [facility] <STEPHANIE Arriaga - Last Filed: 09/25/22 21:25> [facility] Medical History Chronic neck and back pain COVID COVID-19 Heart disease Hypertension Incontinence Knee pain Lung disease Stomach ulcer Stroke Home Medications Omeprazole [Prilosec] 40 mg PO DAILY 11/29/16 [History Last Taken Unknown] acyclovir 400 mg tablet (Zovirax) 400 mg PO BID PRN Not Specified 11/29/16 [History Last Taken Unknown] bupropion HCl 150 mg 24 hr tablet, extended release (Wellbutrin XL) 150 mg PO QHS 11/29/16 [History Last Taken Unknown] hydrocodone 7.5 mg-acetaminophen 325 mg tablet ([place]) 1 ea PO TID PRN Pain 11/29/16 [History Last Taken Unknown] lisinopril 20 mg tablet 20 mg PO DAILY 11/29/16 [History Last Taken Unknown] lorazepam 1 mg tablet 1 mg PO DAILY PRN PRN Anxiety 11/29/16 [History Last Taken Unknown] methadone 10 mg tablet 10 mg PO TID 11/29/16 [History Last Taken Unknown] oxybutynin chloride 5 mg tablet 5 mg PO BID 11/29/16 [History Last Taken Unknown] paroxetine HCl 20 mg tablet 20 mg PO DAILY 11/29/16 [History Last Taken Unknown] promethazine 25 mg tablet 25 mg PO Q6H PRN PRN Nausea 11/29/16 [History Last Taken 01/19/17 23:00] ondansetron 4 mg disintegrating tablet 4 mg PO Q8H PRN PRN Nausea #10 tabs 01/20/17 [Rx Last Taken Unknown] phenazopyridine 100 mg tablet 100 mg PO TID PRN URINE ISSUES 01/20/17 [History Last Taken 01/20/17] aspirin 81 mg tablet,delayed release 81 mg PO QHS 06/17/17 [History Last Taken Unknown] Propranolol Hcl [Propranolol Hcl Er] 60 mg PO DAILY 12/01/19 [History Last Taken Unknown] benzonatate 200 mg capsule 200 mg PO TID PRN Cough 12/01/19 [History Last Taken Unknown] furosemide 20 mg tablet 20 mg PO DAILY PRN EDEMA 12/01/19 [History Last Taken Unknown] magnesium chloride 71.5 mg (magnesium chloride) tablet,delayed release 2 tab PO DAILY 12/01/19 [History Last Taken Unknown] potassium chloride 10 mEq capsule,extended release 10 meq PO DAILY PRN LOW POTASSIUM 12/01/19 [History Last Taken Unknown] furosemide 20 mg tablet 20 mg PO DAILY #5 tabs 09/27/21 [Rx Last Taken Unknown] fluconazole 150 mg tablet (Diflucan) 150 mg PO DAILY #1 TAB 09/25/22 [Rx Last Taken Unknown] guaifenesin 600 mg tablet, extended release 12 hr (Mucinex) 600 mg PO BID #14 tabs 09/25/22 [Rx Last Taken Unknown] Allergy/AdvReac Type Severity Reaction Status Date / Time nitrofurantoin Allergy Unknown Verified 09/25/22 19:54 [From Macrobid] propoxyphene Allergy Unknown Verified 09/25/22 19:54 [From Darvocet-N] cefaclor [From Ceclor] AdvReac Other Verified 09/25/22 19:54 Family History Mother Cancer Father Cancer Heart disease Myocardial infarction Brother Heart disease Myocardial infarction Surgical History History of cholecystectomy History of hysterectomy History of knee surgery Social History Smoking Status: Current every day smoker tobacco type: cigarettes ROS <STEPHANIE Arriaga - Last Filed: 09/25/22 21:25> ROS ED ROS Narrative Constitutional: Negative for weight loss, weakness. Positive fever and chills Eyes: Negative for vision loss, vision change, double vision ENT: Negative for any sore throat, ear pain, congestion Cardiovascular: Negative for any chest pain, tightness, palpitations Respiratory: Negative for any hemoptysis, dyspnea, dyspnea on exertion, orthopnea. Positive for cough, sputum production Gastrointestinal: Negative for any abdominal pain, nausea, vomiting, diarrhea, constipation, blood in stool, blood in vomit : Negative for any urinary frequency, retention, blood in urine. Positive for dysuria, irritation Muscle skeletal: Negative for any muscle joint pain, stiffness, arthralgias, neck pain, back pain. Positive for myalgias Neurological: Negative for any headache, syncope, numbness or tingling, dizziness Skin: Negative for any lumps, itching, abrasions, lacerations. Positive for itching to the left upper chest, Psychiatric: Negative for any depression, anxiety, stress, suicidal ideation, homicidal ideation Hematologic: Negative for any easy bruising, excessive bruising, easy bleeding Allergies: Negative for any eczema, hives, rash EXAM <STEPHANIE Arriaga - Last Filed: 09/25/22 21:25> Physical Exam Narrative Exam Narrative: Vital signs reviewed. Patient is in no distress. HEET: Head normocephalic atraumatic, TMs clear bilaterally. Posterior pharynx is clear, moist mucous membranes. Nares clear bilaterally. Neck: Supple with no lymphadenopathy or tenderness. No signs of meningismus, negative jolt sign. Cardiac: Regular rate and rhythm no murmurs gallops or rubs, equal peripheral pulses bilaterally. Respiratory: Lungs clear to auscultation bilaterally. No chest tenderness. Abdomen: Soft, nontender, nondistended. No abdominal bruit or pulsatile masses. No hepatosplenomegaly Extremities: No peripheral edema, no signs of gross trauma or deformity. Active full range of motion of all extremities. Neuro: Cranial nerves II through XII intact, no focal neurological deficits. Skin: Clean dry and intact with no purpura, petechiae, vesicles or pustules. Patient has slight redness and itching to her left upper chest. There is no hives, no herpetic lesions. Backs/flank: No CVA tenderness, no midline spinal tenderness, no deformity. Psych: Normal mood and affect. No SI, HI or acute psychosis. Const Vital Signs: 09/25/22 19:52 09/25/22 20:40 Temperature 98 F Temperature Source Temporal Pulse Rate 84 Respiratory Rate 16 Respiratory Pattern Normal Blood Pressure 168/76 H Blood Pressure Mean 106 Pulse Ox 97 Oxygen Delivery Method Room Air <Dr. Josue Olson DO - Last Filed: 09/25/22 23:30> Physical Exam Const Vital Signs: 09/25/22 19:52 09/25/22 20:40 Temperature 98 F Temperature Source Temporal Pulse Rate 84 Respiratory Rate 16 Respiratory Pattern Normal Blood Pressure 168/76 H Blood Pressure Mean 106 Pulse Ox 97 Oxygen Delivery Method Room Air [facility] <STEPHANIE Arriaga - Last Filed: 09/25/22 21:25> [facility] Lab Data Attestation: I reviewed the patient's lab results. Labs: Laboratory Results - last 24 hr 09/25/22 20:45 Urine Color Yellow Urine Clarity Clear Urine pH 6.5 Ur Specific [place] 1.020 Urine Protein Negative Urine Glucose (UA) Normal Urine Ketones Negative Urine Occult Blood Negative Urine Nitrite Negative Urine Bilirubin Negative Urine Urobilinogen Normal Ur Leukocyte Esterase 100 H Urine RBC 0 SEEN Urine WBC 0-5 SEEN Ur Squamous Epith Cells 0 SEEN Urine Bacteria 0 SEEN Urine Mucus 0 SEEN Radiography Diagnostic Testing: Clinical Impression(s) from Imaging Studies Chest X-Ray 09/25/22 20:54 IMPRESSION: Normal x-ray examination of the chest. Electronically Signed: Perfecto Coronado MD at 21:13 EST , Treatment and Re-Evaluation Narrative: All radiologic examinations were read, reviewed by the emergency department attending. From these reads, a plan of care will be put in place. Patient appears well, patient appears nontoxic, vital signs are stable. Patient presents to the emergency department with complaints of cough, congestion, possible yeast infection. Patient's chest x-ray showed no acute process. Negative for any pneumonia or pneumothorax. Patient's urinalysis was negative for any infection. Patient's rapid COVID-19, influenza test was negative. At this time, there is no evidence of suspect any influenza or COVID-19. No evidence of urinary tract infection. Secondary to the patient's itching, irritation of her vaginal area, she will be given a Diflucan 150 mg here. She will be given a prescription for Diflucan 150 mg to take in 1 week if she is not better. Patient will also be given a prescription for Mucinex twice a day for a week. She will continue take her inhaler that is at home. Patient is happy with the plan of care and is stable for discharge. She was given strict return precaution <Dr. Josue Olson, DO - Last Filed: 09/25/22 23:30> [facility] MDM Narrative Medical decision making narrative: This patient was seen with a PA/LEVER MILLER Individually assessed they patient including history and physical. I have reviewed everything on the chart that is available and agree with the documentation provided by the PA/LEVER MILLER including discussion about the assessment, treatment plan, discussion, and return precautions. Patient appears well, patient appears nontoxic, vital signs are stable. Patient presents to the emergency department with complaints of cough, congestion, possible yeast infection. Patient's chest x-ray showed no acute process. Negative for any pneumonia or pneumothorax. Patient's urinalysis was negative for any infection. Patient's rapid COVID-19, influenza test was negative. At this time, there is no evidence of suspect any influenza or COVID-19. No evidence of urinary tract infection. Secondary to the patient's itching, irritation of her vaginal area, she will be given a Diflucan 150 mg here. She will be given a prescription for Diflucan 150 mg to take in 1 week if she is not better. Patient will also be given a prescription for Mucinex twice a day for a week. She will continue take her inhaler that is at home. Patient is happy with the plan of care and is stable for discharge. She was given strict return precaution Lab Data Labs: Laboratory Results - last 24 hr 09/25/22 20:45 Urine Color Yellow Urine Clarity Clear Urine pH 6.5 Ur Specific [place] 1.020 Urine Protein Negative Urine Glucose (UA) Normal Urine Ketones Negative Urine Occult Blood Negative Urine Nitrite Negative Urine Bilirubin Negative Urine Urobilinogen Normal Ur Leukocyte Esterase 100 H Urine RBC 0 SEEN Urine WBC 0-5 SEEN Ur Squamous Epith Cells 0 SEEN Urine Bacteria 0 SEEN Urine Mucus 0 SEEN Radiography Diagnostic Testing: Clinical Impression(s) from Imaging Studies Chest X-Ray 09/25/22 20:54 IMPRESSION: Normal x-ray examination of the chest. Electronically Signed: Perfecto Coronado MD at 21:13 EST Reading Location ID and State: [address] [place] [address] , Service support , Treatment and Re-Evaluation Narrative: All radiologic examinations were read, reviewed by the emergency department attending. From these reads, a plan of care will be put in place. Discharge Plan Triage Chief Complaint: General Illness ED Midlevel Provider: Dimas Perrin ED Provider: Josue Olson Dx/Rx/DC Orders Clinical Impression: Viral syndrome, Yeast infection of the vagina Instructions: ED MELA VAGINITIS, ED URI, Viral, No Abx (Adult) Prescriptions: New fluconazole [Diflucan] 150 mg tablet 150 mg PO DAILY Qty: 1 0RF Rx Instructions: Take if not better in 1 week from ER visit guaifenesin [Mucinex] 600 mg tablet extended release 12hr 600 mg PO BID Qty: 14 0RF No Action methadone 10 MG tablet 10 mg PO TID Label Comments: pain lisinopril 20 MG tablet 20 mg PO DAILY Label Comments: blood pressure/heart acyclovir [Zovirax] 400 MG tablet 400 mg PO BID PRN (Reason: Not Specified) Label Comments: antiviral hydrocodone-acetaminophen [[place]] 1 TABLET tablet 1 ea PO TID PRN (Reason: Pain) Label Comments: pain paroxetine HCl 20 MG tablet 20 mg PO DAILY Label Comments: mental health promethazine 25 MG tablet 25 mg PO Q6H PRN PRN (Reason: Nausea) Label Comments: nausea lorazepam 1 MG tablet 1 mg PO DAILY PRN PRN (Reason: Anxiety) Label Comments: anxiety oxybutynin chloride 5 MG tablet 5 mg PO BID Label Comments: urination bupropion HCl [Wellbutrin XL] 150 MG tablet extended release 24 hr 150 mg PO QHS Label Comments: mental health Omeprazole [Prilosec] 40 MG capsule 40 mg PO DAILY Label Comments: acid reflux phenazopyridine 100 MG tablet 100 mg PO TID PRN (Reason: URINE ISSUES) ondansetron 4 MG tablet 4 mg PO Q8H PRN PRN (Reason: Nausea) Qty: 10 0RF aspirin 81 MG tablet 81 mg PO QHS Label Comments: heart health potassium chloride 10 MEQ capsule, extended release 10 meq PO DAILY PRN (Reason: LOW POTASSIUM) benzonatate 200 MG capsule 200 mg PO TID PRN (Reason: Cough) furosemide 20 MG tablet 20 mg PO DAILY PRN (Reason: EDEMA) magnesium chloride 71.5 MG tablet,delayed release (DR/EC) 2 tab PO DAILY Propranolol Hcl [Propranolol Hcl Er] 60 MG Cap.Sa.24h 60 mg PO DAILY furosemide 20 mg tablet 20 mg PO DAILY Qty: 5 0RF Primary Care Provider: Keila Sullivan Referrals: Keila Sullivan MD [Primary Care Provider] - Activity Restrictions/Additional Instructions: Take Diflucan in 1 week if you are not better from today's dose in the emergency department. Take Mucinex for your congestion. You may take your inhaler for your cough. Disposition Disposition: Home, Self Care Discharge Date/Time: 09/25/22 21:48
[2022-09-25 21:15] LABS: White Blood Cells 0-5 SEEN /hpf (0-5)
[2022-09-25] MEDS: Fluconazole 100 MG Tablet 150 MG PO (21:23)
== END 2022-09-25 21:48 | disposition home or self-care (01) ==
PROVIDERS: Nurse Practitioner; Emergency Provider Student in an Organized Health Care Education/Training Program; PCP Internal Medicine; Visit Provider Student in an Organized Health Care Education/Training Program
DX: B34.9 Viral infection, unspecified (principal); Z68.43 Body mass index [BMI] 50.0-59.9, adult; E66.9 Obesity, unspecified; B37.31 Acute candidiasis of vulva and vagina; I11.9 Hypertensive heart disease without heart failure; E78.5 Hyperlipidemia, unspecified; F17.210 Nicotine dependence, cigarettes, uncomplicated; Z79.82 Long term (current) use of aspirin; Z79.899 Other long term (current) drug therapy; Z86.16 Personal history of COVID-19
CPT/HCPCS: 71046; 81001; 87428; 99283

== ENCOUNTER 2022-10-01 21:33 | Emergency (ER) | payer MEDICAID, SELFPAY ==
[2022-10-01 21:34] VITALS: BP 180/82; PULSE 76; RESP 18; TEMP 37; O2SAT 95; BMI 54.8
--- NOTE | 2022-10-01 22:20 | RAD_ITS ---
EXAM: XR CHEST, 2 VIEWS CLINICAL INDICATION: cough TECHNIQUE: Frontal and lateral views of the chest. This report was created using [employer] report generation technology. COMPARISON: 09/25/2022 FINDINGS: LUNGS AND PLEURAL SPACES: Unremarkable. No consolidation or edema. No pneumothorax. No effusion. HEART: Unremarkable. Cardiac silhouette not enlarged. MEDIASTINUM: Central airways and mediastinal contour are unremarkable. BONES/JOINTS: Unremarkable. SOFT TISSUES: Unremarkable. RAD/Chest PA and Lateral IMPRESSION: No radiographic evidence of acute cardiopulmonary disease. Electronically Signed: Bello Dasilva MD at 23:41 EST ,
[2022-10-01] MEDS: 0.9% Normal Saline 1,000 ML 999 ML IV (23:10)
[2022-10-01] MEDS: proCHLORPERazine 10 MG/2 ML Vial IV (23:10)
[2022-10-01 23:28] LABS: Absolute Lymphocyte Count 1.12 X10^3/uL (0.83-4.51); Absolute Neutrophil Count 4.2 X10^3/uL (2.0-7.7); Basophil# 0.01 X10^3/uL; Basophil% 0.2 % (0-1); Eosinophil# 0.22 X10^3/uL; Eosinophils% 3.6 % (0-5); Hematocrit 38.1 % (37-47); Hemoglobin 12.1 g/dL (12.0-15.0); Lymphocyte # 1.12 X10^3/ul (0.83-4.51); Lymphocyte % 18.3 % (19-41); Mean Corp Hgb Conc 31.8 g/dL (32-36); Mean Corpuscular Hgb 26.4 pg (27.0-32.0); Mean Corpuscular Volume 83.2 fL (81-99); Mean Platelet Vol. 9.2 fl (6.2-12.0); Monocyte# 0.52 X10^3/uL; Monocyte% 8.5 % (0-10); NRBC Flagged by Analyzer 0 % (0-5); Neutrophil # 4.17 X10^3/uL (2.7-7.7); Neutrophil % 68.1 % (47-70); Platelet Count 195 K/mm3 (150-450); RBC Distribution Width CV 12.9 % (11.6-14.6); Red Blood Count 4.58 M/mm3 (4.2-5.4); White Blood Count 6.1 K/mm3 (4.4-11.0)
[2022-10-01 23:39] LABS: AST(SGOT) 23 U/L (15-37); Alanine Aminotransfer ALT/SGPT 24 U/L (13-56); Albumin, Serum 3.4 g/dL (3.2-5.0); Alkaline Phosphatase 102 U/L (45-117); Anion Gap 7 (5-15); BUN 18 mg/dL (7-18); BUN/Creat Ratio 22.8 RATIO (10-20); Bilirubin, Direct 0.17 mg/dL (0.00-0.30); Calcium,Total 9.1 mg/dL (8.5-10.1); Chloride 107 mmol/L (98-107); Creatinine, Serum 0.79 mg/dL (0.55-1.02); EST Glomerular Filtration Rate 78 mL/min (>60); Est Glom Filt Rate - Afr Amer 94 mL/min (>60); Estimated Creatinine Clearance 70.88 ml/min; Globulin 3.6 g/dL (2.2-4.2); Glucose 180 mg/dL (74-106); Lipase 94 U/L (73-393); Potassium 4.3 mmol/L (3.5-5.1); Sodium Level 139 mmol/L (136-145)
[2022-10-01 23:47] LABS: Mucous, Urine 0 SEEN /hpf (<or=2+)
[2022-10-02 00:27] LABS: Color, Urine Yellow (Yellow); Glucose, Dipstick Normal (Normal); Ketone-Dipstick Negative (Negative); Leukocyte Esterase-Dipstick 100 /ul (Negative); Nitrite-Dipstick Negative (Negative); Occult Blood-Urine Negative /ul (Negative); Protein-Dipstick 15 mg/dl (Negative); Specific Gravity, Urine 1.015 (1.002-1.030); Urine Bilirubin Dipstick Negative (Negative); Urine Clarity Clear (Clear); Urine Urobilinogen Normal (Normal); Urine pH 6.5 (5.0 - 8.0)
[2022-10-02 00:44] LABS: Bacteria 1+ /hpf (None Seen); Red Blood Cells-Urine 0-5 SEEN /hpf (0-5); Squamous Epithelial Cells - UA 0-5 SEEN /hpf (5-10); White Blood Cells 0-5 SEEN /hpf (0-5)
[2022-10-02 01:27] VITALS: PULSE 81; RESP 16; O2SAT 97
--- NOTE | 2022-10-02 01:27 | EX.ED.DYSGE1 ---
HPI History of Present Illness Chief Complaint: Nausea/Vomiting Narrative Narrative: Patient is a 62-year-old female with past medical history of hypertension and chronic pain currently on methadone as well as previous CVA. She states for the past 5 to 7 days she has had congestion drainage and cough and that family numbers have been sick with similar symptoms. She states however that in the past 1 to 2 days she has not had generalized abdominal discomfort with bouts of nausea and loose stool. She states no one she has been around has had the symptoms of the abdominal issues. She states that with the different symptoms from family members and the fact that Phenergan did not seem to control her nausea at home she presents for evaluation [facility] Medical History Chronic neck and back pain COVID COVID-19 Heart disease Hypertension Incontinence Knee pain Lung disease Stomach ulcer Stroke Home Medications Omeprazole [Prilosec] 40 mg PO DAILY 11/29/16 [History Last Taken Unknown] acyclovir 400 mg tablet (Zovirax) 400 mg PO BID PRN Not Specified 11/29/16 [History Last Taken Unknown] bupropion HCl 150 mg 24 hr tablet, extended release (Wellbutrin XL) 150 mg PO QHS 11/29/16 [History Last Taken Unknown] hydrocodone 7.5 mg-acetaminophen 325 mg tablet ([place]y) 1 ea PO TID PRN Pain 11/29/16 [History Last Taken Unknown] lisinopril 20 mg tablet 20 mg PO DAILY 11/29/16 [History Last Taken Unknown] lorazepam 1 mg tablet 1 mg PO DAILY PRN PRN Anxiety 11/29/16 [History Last Taken Unknown] methadone 10 mg tablet 10 mg PO TID 11/29/16 [History Last Taken Unknown] oxybutynin chloride 5 mg tablet 5 mg PO BID 11/29/16 [History Last Taken Unknown] paroxetine HCl 20 mg tablet 20 mg PO DAILY 11/29/16 [History Last Taken Unknown] promethazine 25 mg tablet 25 mg PO Q6H PRN PRN Nausea 11/29/16 [History Last Taken 01/19/17 23:00] ondansetron 4 mg disintegrating tablet 4 mg PO Q8H PRN PRN Nausea #10 tabs 01/20/17 [Rx Last Taken Unknown] phenazopyridine 100 mg tablet 100 mg PO TID PRN URINE ISSUES 01/20/17 [History Last Taken 01/20/17] aspirin 81 mg tablet,delayed release 81 mg PO QHS 06/17/17 [History Last Taken Unknown] Propranolol Hcl [Propranolol Hcl Er] 60 mg PO DAILY 12/01/19 [History Last Taken Unknown] benzonatate 200 mg capsule 200 mg PO TID PRN Cough 12/01/19 [History Last Taken Unknown] furosemide 20 mg tablet 20 mg PO DAILY PRN EDEMA 12/01/19 [History Last Taken Unknown] magnesium chloride 71.5 mg (magnesium chloride) tablet,delayed release 2 tab PO DAILY 12/01/19 [History Last Taken Unknown] potassium chloride 10 mEq capsule,extended release 10 meq PO DAILY PRN LOW POTASSIUM 12/01/19 [History Last Taken Unknown] furosemide 20 mg tablet 20 mg PO DAILY #5 tabs 09/27/21 [Rx Last Taken Unknown] fluconazole 150 mg tablet (Diflucan) 150 mg PO DAILY #1 TAB 09/25/22 [Rx Last Taken Unknown] guaifenesin 600 mg tablet, extended release 12 hr (Mucinex) 600 mg PO BID #14 tabs 09/25/22 [Rx Last Taken Unknown] azelastine 137 mcg (0.1 %) nasal spray aerosol 2 spray intranasal BID #30 mL 10/02/22 [Rx Last Taken Unknown] Allergy/AdvReac Type Severity Reaction Status Date / Time nitrofurantoin Allergy Unknown Verified 09/25/22 19:54 [From Macrobid] propoxyphene Allergy Unknown Verified 09/25/22 19:54 [From Darvocet-N] cefaclor [From Ceclor] AdvReac Other Verified 09/25/22 19:54 Family History Mother Cancer Father Cancer Heart disease Myocardial infarction Brother Heart disease Myocardial infarction Surgical History History of cholecystectomy History of hysterectomy History of knee surgery Social History Smoking Status: Current every day smoker tobacco type: cigarettes ROS ROS ED Constitutional Constitutional ED: Denies chills or fever(s) ENT ENT ED: Reports rhinorrhea; Denies sore throat Cardiovascular Cardiovascular: Denies chest pain Respiratory/Chest Respiratory/Chest: Reports cough; Denies dyspnea Gastrointestinal Gastrointestinal: Reports abdominal pain, diarrhea and nausea; Denies vomiting Genitourinary Genitourinary ED: Denies dysuria Musculoskeletal Musculoskeletal: Reports myalgias Integumentary Denies rash Neurologic Neurologic: Denies headache(s) Hematologic/Lymphatic Hematologic/Lymphatic: Denies easy bleeding or easy bruising EXAM Physical Exam Const Vital Signs: 10/01/22 21:34 10/02/22 01:27 Temperature 98.6 F Temperature Source Temporal Pulse Rate 76 81 Respiratory Rate 18 16 Blood Pressure 180/82 H Blood Pressure Mean 114 Pulse Ox 95 97 Oxygen Delivery Method Room Air Positive well nourished, well developed and obese General Appearance ED: well developed Nutritional Appearance: obese HEENT Reports moist mucous membranes HEENT Narrative: There is cobblestoning the posterior pharynx consistent with sinus drainage without airway edema or compromise. No trismus change in voice or difficulty with secretions Eyes PERRL and EOMs intact bilaterally General Eye ED: Negative for scleral icterus Neck supple and no JVD Resp normal respiratory effort Resp Narrative: Breath sounds are slight diminished throughout with faint rhonchi in the bilateral bases but otherwise no nasal flaring retractions tachypnea or accessory muscle use Cardio regular rate and regular rhythm Rate: other Other Details: Radial pulses are plus 2 out of 4 bilaterally are equal and symmetric GI non-distended GI Narrative: Abdomen is obese soft and nondistended with hyperactive bowel sound. There is mild diffuse pain on palpation without voluntary guarding or rigidity. No pulsatile mass or fluid wave Auscultation: hyperactive bowel sounds Palpation: soft Back/Spine no CVA tenderness Extremity normal to inspection Neuro oriented x3 and CN's II-XII intact bilaterally Sensorium / Orientation: alert Psych mental status grossly normal Skin no rashes or lesions noted General Skin Exam: Negative for jaundice MDM MDM MDM Narrative Medical decision making narrative: Patient presented to the ER mildly hypertensive but otherwise with stable vital. Her history and exam is most consistent with a viral URI as well as viral stomach infection. However with the persistent cough and then worsening of symptoms I did elect to perform a chest x-ray to rule out pneumonia as well as basic laboratory studies. With the generalized abdominal discomfort and nausea there is concern she could have electrolyte abnormalities acute kidney injury urinary tract infection or acute pancreatitis. Labs revealed no clinically significant findings. Patient's urine shows +1 bacteria but there are no white blood cells present and she has no symptoms therefore I feel this is normal dav and do not need to put her on antibiotics. Patient was given IV Compazine and hydration and on reevaluation reported feeling better and her abdomen remains soft and nonsurgical. Therefore this time I feel patient has 2 different viral infections but as she is not requiring supplemental oxygen she is not in respiratory distress does not have signs of acute kidney injury or severe electrolyte derangement there is no need for admission and she is otherwise safe for discharge Lab Data Attestation: I reviewed the patient's lab results. Labs: Laboratory Results - last 24 hr 10/01/22 10/01/22 10/01/22 23:11 23:11 23:35 WBC 6.1 RBC 4.58 Hgb 12.1 Hct 38.1 MCV 83.2 MCH 26.4 L MCHC 31.8 L RDW Std Deviation 39.0 RDW Coeff of Tracey 12.9 Plt Count 195 MPV 9.2 Immature Gran % (Auto) 1.300 H Neut % (Auto) 68.1 Lymph % (Auto) 18.3 L [place] % (Auto) 8.5 Eos % (Auto) 3.6 Baso % (Auto) 0.2 Absolute Neuts (auto) 4.2 Absolute Lymphs (auto) 1.12 Nucleated RBC % 0 Sodium 139 Potassium 4.3 Chloride 107 Carbon Dioxide 25.0 Anion Gap 7 BUN 18 Creatinine 0.79 Estim Creat Clear Calc 70.88 Est GFR (MDRD) Af Amer 94 Est GFR (MDRD) Non-Af 78 BUN/Creatinine Ratio 22.8 H Glucose 180 H Calcium 9.1 Total Bilirubin 0.60 Direct Bilirubin 0.17 AST 23 ALT 24 Alkaline Phosphatase 102 Total Protein 7.0 Albumin 3.4 Globulin 3.6 Lipase 94 Urine Color Yellow Urine Clarity Clear Urine pH 6.5 Ur Specific Gardner 1.015 Urine Protein 15 H Urine Glucose (UA) Normal Urine Ketones Negative Urine Occult Blood Negative Urine Nitrite Negative Urine Bilirubin Negative Urine Urobilinogen Normal Ur Leukocyte Esterase 100 H Urine RBC 0-5 SEEN Urine WBC 0-5 SEEN Ur Squamous Epith Cells 0-5 SEEN Urine Bacteria 1+ Urine Mucus 0 SEEN Radiography Diagnostic Testing: Clinical Impression(s) from Imaging Studies Chest X-Ray 10/01/22 22:20 IMPRESSION: No radiographic evidence of acute cardiopulmonary disease. Electronically Signed: Bello Dasilva MD at 23:41 EST , Chest x-ray as interpreted by the emergency medicine physician reveals no acute infiltrate pneumothorax or pleural effusion Discharge Plan Triage Chief Complaint: Nausea/Vomiting Other Complaint: Nausea/Vomiting/Diarrhea ED Provider: Monroe Laura Dx/Rx/DC Orders Clinical Impression: Nausea vomiting and diarrhea, Acute upper respiratory infection, Hypertension, Morbid obesity with BMI of 50.0-59.9, adult Instructions: ED Gastroenteritis, Viral (Adult), ED URI, Viral, No Abx (Adult) Prescriptions: New azelastine 137 mcg (0.1 %) aerosol,spray 2 spray intranasal BID Qty: 30 0RF Rx Instructions: administer into each nostril No Action methadone 10 MG tablet 10 mg PO TID Label Comments: pain lisinopril 20 MG tablet 20 mg PO DAILY Label Comments: blood pressure/heart acyclovir [Zovirax] 400 MG tablet 400 mg PO BID PRN (Reason: Not Specified) Label Comments: antiviral hydrocodone-acetaminophen [[place]alsey] 1 TABLET tablet 1 ea PO TID PRN (Reason: Pain) Label Comments: pain paroxetine HCl 20 MG tablet 20 mg PO DAILY Label Comments: mental health promethazine 25 MG tablet 25 mg PO Q6H PRN PRN (Reason: Nausea) Label Comments: nausea lorazepam 1 MG tablet 1 mg PO DAILY PRN PRN (Reason: Anxiety) Label Comments: anxiety oxybutynin chloride 5 MG tablet 5 mg PO BID Label Comments: urination bupropion HCl [Wellbutrin XL] 150 MG tablet extended release 24 hr 150 mg PO QHS Label Comments: mental health Omeprazole [Prilosec] 40 MG capsule 40 mg PO DAILY Label Comments: acid reflux phenazopyridine 100 MG tablet 100 mg PO TID PRN (Reason: URINE ISSUES) ondansetron 4 MG tablet 4 mg PO Q8H PRN PRN (Reason: Nausea) Qty: 10 0RF aspirin 81 MG tablet 81 mg PO QHS Label Comments: heart health potassium chloride 10 MEQ capsule, extended release 10 meq PO DAILY PRN (Reason: LOW POTASSIUM) benzonatate 200 MG capsule 200 mg PO TID PRN (Reason: Cough) furosemide 20 MG tablet 20 mg PO DAILY PRN (Reason: EDEMA) magnesium chloride 71.5 MG tablet,delayed release (DR/EC) 2 tab PO DAILY Propranolol Hcl [Propranolol Hcl Er] 60 MG Cap.Sa.24h 60 mg PO DAILY furosemide 20 mg tablet 20 mg PO DAILY Qty: 5 0RF fluconazole [Diflucan] 150 mg tablet 150 mg PO DAILY Qty: 1 0RF Rx Instructions: Take if not better in 1 week from ER visit guaifenesin [Mucinex] 600 mg tablet extended release 12hr 600 mg PO BID Qty: 14 0RF Primary Care Provider: Keila Sullivan Referrals: Keila Sullivan MD [Primary Care Provider] - Disposition Disposition: Home, Self Care Discharge Date/Time: 10/02/22 01:48
== END 2022-10-02 01:48 | disposition home or self-care (01) ==
PROVIDERS: Emergency Provider Emergency Medicine; PCP Internal Medicine; Visit Provider Emergency Medicine
DX: R11.2 Nausea with vomiting, unspecified (principal); E66.01 Morbid (severe) obesity due to excess calories; Z68.43 Body mass index [BMI] 50.0-59.9, adult; R19.7 Diarrhea, unspecified; J06.9 Acute upper respiratory infection, unspecified; F17.210 Nicotine dependence, cigarettes, uncomplicated; Z86.16 Personal history of COVID-19; Z86.73 Personal history of transient ischemic attack (TIA), and cerebral infarction without residual deficits
CPT/HCPCS: 71046; 80048; 80076; 81001; 83690; 85025; 96361; 96374; 99283; J7030; A4216

== ENCOUNTER 2022-10-06 22:51 | Emergency (ER) | payer MEDICAID, SELFPAY ==
[2022-10-06 22:53] VITALS: BP 138/72; PULSE 70; RESP 18; TEMP 36.7; O2SAT 95; BMI 54.8
--- NOTE | 2022-10-06 23:05 | EX.ED.VIS.UR ---
HPI HPI - URI History of Present Illness Chief Complaint: Cough Narrative Narrative: 62-year-old female past medical history of hypertension, prediabetes, chronic back pain, takes a baby aspirin for her heart. She states she was seen in the emergency department a few days ago and diagnosed with an upper respiratory infection. She has been coughing over the last 3 to 5 days. She went and followed up with her nurse practitioner who put her on antibiotics because she thinks that it turned into a pneumonia after she had the flu. She states they did a chest x-ray a few days ago which did not show a pneumonia however. She felt worse and continued to cough, so she was put on antibiotics by her nurse practitioner. This evening, she was coughing and coughed up sputum that was mixed with blood. She denies any samanta mopped assist. She called the nurse line and they told her to come to the emergency department because of her coughing up blood. ROS ROS ED ROS Narrative Constitutional: No fever, no chills. HEENT: No sore throat. No neck pain. No loss of vision. No rhinorrhea. Cardiovascular: No chest pain. No palpitations. No pedal edema. Respiratory: Positive cough with blood-streaked sputum, no shortness of breath. No samanta hemoptysis, no hemoptysis more than a cup. Abdominal: No abdominal pain. No nausea. No vomiting. Genitourinary: No dysuria. No hematuria. Musculoskeletal: No myalgias. No arthralgias. Neurologic: No headaches. No dizziness. No lightheadedness. Skin: No rash. No change in color. Psychiatric: No depression. No anxiety. PFSH PFS Medical History Chronic neck and back pain COVID COVID-19 Heart disease Hypertension Incontinence Knee pain Lung disease Stomach ulcer Stroke Home Medications Omeprazole [Prilosec] 40 mg PO DAILY 11/29/16 [History Last Taken Unknown] acyclovir 400 mg tablet (Zovirax) 400 mg PO BID PRN Not Specified 11/29/16 [History Last Taken Unknown] bupropion HCl 150 mg 24 hr tablet, extended release (Wellbutrin XL) 150 mg PO QHS 11/29/16 [History Last Taken Unknown] hydrocodone 7.5 mg-acetaminophen 325 mg tablet ([place]) 1 ea PO TID PRN Pain 11/29/16 [History Last Taken Unknown] lisinopril 20 mg tablet 20 mg PO DAILY 11/29/16 [History Last Taken Unknown] lorazepam 1 mg tablet 1 mg PO DAILY PRN PRN Anxiety 11/29/16 [History Last Taken Unknown] methadone 10 mg tablet 10 mg PO TID 11/29/16 [History Last Taken Unknown] oxybutynin chloride 5 mg tablet 5 mg PO BID 11/29/16 [History Last Taken Unknown] paroxetine HCl 20 mg tablet 20 mg PO DAILY 11/29/16 [History Last Taken Unknown] promethazine 25 mg tablet 25 mg PO Q6H PRN PRN Nausea 11/29/16 [History Last Taken 01/19/17 23:00] ondansetron 4 mg disintegrating tablet 4 mg PO Q8H PRN PRN Nausea #10 tabs 01/20/17 [Rx Last Taken Unknown] phenazopyridine 100 mg tablet 100 mg PO TID PRN URINE ISSUES 01/20/17 [History Last Taken 01/20/17] aspirin 81 mg tablet,delayed release 81 mg PO QHS 06/17/17 [History Last Taken Unknown] Propranolol Hcl [Propranolol Hcl Er] 60 mg PO DAILY 12/01/19 [History Last Taken Unknown] benzonatate 200 mg capsule 200 mg PO TID PRN Cough 12/01/19 [History Last Taken Unknown] furosemide 20 mg tablet 20 mg PO DAILY PRN EDEMA 12/01/19 [History Last Taken Unknown] magnesium chloride 71.5 mg (magnesium chloride) tablet,delayed release 2 tab PO DAILY 12/01/19 [History Last Taken Unknown] potassium chloride 10 mEq capsule,extended release 10 meq PO DAILY PRN LOW POTASSIUM 12/01/19 [History Last Taken Unknown] furosemide 20 mg tablet 20 mg PO DAILY #5 tabs 09/27/21 [Rx Last Taken Unknown] fluconazole 150 mg tablet (Diflucan) 150 mg PO DAILY #1 TAB 09/25/22 [Rx Last Taken Unknown] guaifenesin 600 mg tablet, extended release 12 hr (Mucinex) 600 mg PO BID #14 tabs 09/25/22 [Rx Last Taken Unknown] azelastine 137 mcg (0.1 %) nasal spray aerosol 2 spray intranasal BID #30 mL 10/02/22 [Rx Last Taken Unknown] Allergy/AdvReac Type Severity Reaction Status Date / Time nitrofurantoin Allergy Unknown Verified 10/06/22 22:55 [From Macrobid] propoxyphene Allergy Unknown Verified 10/06/22 22:55 [From Darvocet-N] cefaclor [From Ceclor] AdvReac Other Verified 10/06/22 22:55 Family History Mother Cancer Father Cancer Heart disease Myocardial infarction Brother Heart disease Myocardial infarction Surgical History History of cholecystectomy History of hysterectomy History of knee surgery Social History Smoking Status: Current every day smoker tobacco type: cigarettes EXAM Physical Exam Narrative Exam Narrative: Afebrile. Vital signs noted. HEENT: Normocephalic. Atraumatic. PERRL, EOMI. Neck soft and supple. No point tenderness or step off. Cardiovascular: Regular rate and rhythm. No murmurs, rubs, or gallops appreciated. Respiratory: No tachypnea. Lungs clear to auscultation bilaterally. Dry cough without hemoptysis on examination. Gastrointestinal: Abdomen soft, nontender, with normoactive bowel sounds. No rebound or guarding. Neurological: Awake. Alert. Nonfocal, nonlateralizing. Skin: No rash. Normal color. No pallor. Musculoskeletal: No pedal edema. Full range of motion extremities. Const Vital Signs: 10/06/22 22:53 Temperature 98.0 F Temperature Source Temporal Pulse Rate 70 Respiratory Rate 18 Blood Pressure 138/72 H Blood Pressure Mean 94 Pulse Ox 95 Oxygen Delivery Method Room Air MDM MDM MDM Narrative Medical decision making narrative: I reviewed the patient's prior records. She had a work-up on the , approximately 5 days ago. Chest x-ray was negative at the time and she had a hemoglobin stable at 12. I did offer to repeat a chest x-ray, and check her CBC to make sure she has not lost a lot of blood, but the patient states that she had told the nurse over the phone that it was only half a teaspoon of blood mixed with sputum that was slimy. It was not samanta hemoptysis, and she does not want any other work-up. She would like to be discharged. Through shared decision-making, I do feel that she can be discharged safely home with follow-up as her pulse ox is 95% on room air, she is not tachycardic, she states she is not having any chest pain or increasing shortness of breath, and she has not had any samanta mopped assist. Return instructions were reviewed. She will continue her antibiotics and finish the course of therapy. Disposition is discharged home in stable condition. Discharge Plan Triage Chief Complaint: Cough ED Provider: Memo Kitchen Dx/Rx/DC Orders Prescriptions: No Action methadone 10 MG tablet 10 mg PO TID Label Comments: pain lisinopril 20 MG tablet 20 mg PO DAILY Label Comments: blood pressure/heart acyclovir [Zovirax] 400 MG tablet 400 mg PO BID PRN (Reason: Not Specified) Label Comments: antiviral hydrocodone-acetaminophen [[place]] 1 TABLET tablet 1 ea PO TID PRN (Reason: Pain) Label Comments: pain paroxetine HCl 20 MG tablet 20 mg PO DAILY Label Comments: mental health promethazine 25 MG tablet 25 mg PO Q6H PRN PRN (Reason: Nausea) Label Comments: nausea lorazepam 1 MG tablet 1 mg PO DAILY PRN PRN (Reason: Anxiety) Label Comments: anxiety oxybutynin chloride 5 MG tablet 5 mg PO BID Label Comments: urination bupropion HCl [Wellbutrin XL] 150 MG tablet extended release 24 hr 150 mg PO QHS Label Comments: mental health Omeprazole [Prilosec] 40 MG capsule 40 mg PO DAILY Label Comments: acid reflux phenazopyridine 100 MG tablet 100 mg PO TID PRN (Reason: URINE ISSUES) ondansetron 4 MG tablet 4 mg PO Q8H PRN PRN (Reason: Nausea) Qty: 10 0RF aspirin 81 MG tablet 81 mg PO QHS Label Comments: heart health potassium chloride 10 MEQ capsule, extended release 10 meq PO DAILY PRN (Reason: LOW POTASSIUM) benzonatate 200 MG capsule 200 mg PO TID PRN (Reason: Cough) furosemide 20 MG tablet 20 mg PO DAILY PRN (Reason: EDEMA) magnesium chloride 71.5 MG tablet,delayed release (DR/EC) 2 tab PO DAILY Propranolol Hcl [Propranolol Hcl Er] 60 MG Cap.Sa.24h 60 mg PO DAILY furosemide 20 mg tablet 20 mg PO DAILY Qty: 5 0RF fluconazole [Diflucan] 150 mg tablet 150 mg PO DAILY Qty: 1 0RF Rx Instructions: Take if not better in 1 week from ER visit guaifenesin [Mucinex] 600 mg tablet extended release 12hr 600 mg PO BID Qty: 14 0RF azelastine 137 mcg (0.1 %) aerosol,spray 2 spray intranasal BID Qty: 30 0RF Rx Instructions: administer into each nostril Primary Care Provider: Keila Sullivan Referrals: Keila Sullivan MD [Primary Care Provider] -
--- NOTE | 2022-10-06 23:14 | ED.RN ---
patient calls out after Dr Kitchen leaves her room asking for a wheelchair to go home. Pt states the doctor made me feel like an inconvenience This RN apologizes that the patient feels this way. I ask her to stay for treatment so we can get her feeling better, she says i just want to go home. Dr Kitchen made aware, he goes in to speak with patient again. She still wishes to leave. Pt was wheeled out of department in a wheelchair by staff.
== END 2022-10-06 23:29 | disposition home or self-care (01) ==
PROVIDERS: Emergency Provider Emergency Medicine; PCP Internal Medicine; Visit Provider Emergency Medicine
DX: R05.9 Cough, unspecified (principal); I11.9 Hypertensive heart disease without heart failure; F17.210 Nicotine dependence, cigarettes, uncomplicated; Z79.82 Long term (current) use of aspirin; Z79.899 Other long term (current) drug therapy; Z86.16 Personal history of COVID-19; Z86.73 Personal history of transient ischemic attack (TIA), and cerebral infarction without residual deficits
CPT/HCPCS: 99282

== ENCOUNTER 2022-10-08 13:19 | Emergency (ER) | payer MEDICAID, SELFPAY ==
[2022-10-08 13:20] VITALS: BP 141/79; PULSE 61; RESP 18; TEMP 37; O2SAT 96
[2022-10-08 13:43] VITALS: BP 144/76; PULSE 63; RESP 18; TEMP 36.2; O2SAT 95; BMI 47.0
[2022-10-08 13:44] VITALS: O2SAT 96
--- NOTE | 2022-10-08 14:09 | EKG12_ITS ---
Test Reason : SOB Blood Pressure : / mmHG Vent. Rate : 059 BPM Atrial Rate : 059 BPM P-R Int : 170 ms QRS Dur : 076 ms QT Int : 444 ms P-R-T Axes : 026 002 019 degrees QTc Int : 439 ms Poor data quality, interpretation may be adversely affected Sinus bradycardia Cannot rule out Anterior infarct , age undetermined Abnormal ECG Confirmed by JOHNNA SEPULVEDA, JOHNNY ([id number]), health editor CONSTANCE PIERSON ([id number]) on 10/12/2022 8:54:19 AM Referred By: DARBY Confirmed By:JOHNNY OROPEZA MD
--- NOTE | 2022-10-08 14:10 | ED.VIS.DYS ---
HPI History of Present Illness Chief Complaint: Cough Informant: patient Narrative Narrative: Patient presents because of hemoptysis for the past 4 days. She states it is mostly bloody sputum but occasionally she coughs up a small spattering of bright red blood, 1 tsp or less at a time. She is having no chest pain, fevers, chills but she has been coughing for the past 2 months or so, she states it is waxed and waned, she has a history of COPD, 1 week ago she was seen in the office and diagnosed with pneumonia clinically, and since then she has been taking doxycycline twice daily. She was coughing up sputum at that point. She has no history of DVT or PE, she takes aspirin 81 mg daily but no anticoagulants. No recent travel out of the area or immobilization/hospitalization/surgery. No leg pain or swelling unilaterally recently. Because she has been coughing up bloody sputum for the past 4 days and it is continuing, although she is not necessarily feeling worse otherwise, she called the office to be seen and she was sent to the emergency room. [facility] Medical History Chronic neck and back pain COVID COVID-19 Heart disease Hypertension Incontinence Knee pain Lung disease Stomach ulcer Stroke Home Medications Omeprazole [Prilosec] 40 mg PO DAILY 11/29/16 [History Last Taken Unknown] acyclovir 400 mg tablet (Zovirax) 400 mg PO BID PRN Not Specified 11/29/16 [History Last Taken Unknown] bupropion HCl 150 mg 24 hr tablet, extended release (Wellbutrin XL) 150 mg PO QHS 11/29/16 [History Last Taken Unknown] hydrocodone 7.5 mg-acetaminophen 325 mg tablet ([place]) 1 ea PO TID PRN Pain 11/29/16 [History Last Taken Unknown] lisinopril 20 mg tablet 20 mg PO DAILY 11/29/16 [History Last Taken Unknown] lorazepam 1 mg tablet 1 mg PO DAILY PRN PRN Anxiety 11/29/16 [History Last Taken Unknown] methadone 10 mg tablet 10 mg PO TID 11/29/16 [History Last Taken Unknown] oxybutynin chloride 5 mg tablet 5 mg PO BID 11/29/16 [History Last Taken Unknown] paroxetine HCl 20 mg tablet 20 mg PO DAILY 11/29/16 [History Last Taken Unknown] promethazine 25 mg tablet 25 mg PO Q6H PRN PRN Nausea 11/29/16 [History Last Taken 01/19/17 23:00] ondansetron 4 mg disintegrating tablet 4 mg PO Q8H PRN PRN Nausea #10 tabs 01/20/17 [Rx Last Taken Unknown] phenazopyridine 100 mg tablet 100 mg PO TID PRN URINE ISSUES 01/20/17 [History Last Taken 01/20/17] aspirin 81 mg tablet,delayed release 81 mg PO QHS 06/17/17 [History Last Taken Unknown] Propranolol Hcl [Propranolol Hcl Er] 60 mg PO DAILY 12/01/19 [History Last Taken Unknown] benzonatate 200 mg capsule 200 mg PO TID PRN Cough 12/01/19 [History Last Taken Unknown] furosemide 20 mg tablet 20 mg PO DAILY PRN EDEMA 12/01/19 [History Last Taken Unknown] magnesium chloride 71.5 mg (magnesium chloride) tablet,delayed release 2 tab PO DAILY 12/01/19 [History Last Taken Unknown] potassium chloride 10 mEq capsule,extended release 10 meq PO DAILY PRN LOW POTASSIUM 12/01/19 [History Last Taken Unknown] furosemide 20 mg tablet 20 mg PO DAILY #5 tabs 09/27/21 [Rx Last Taken Unknown] fluconazole 150 mg tablet (Diflucan) 150 mg PO DAILY #1 TAB 09/25/22 [Rx Last Taken Unknown] guaifenesin 600 mg tablet, extended release 12 hr (Mucinex) 600 mg PO BID #14 tabs 09/25/22 [Rx Last Taken Unknown] azelastine 137 mcg (0.1 %) nasal spray aerosol 2 spray intranasal BID #30 mL 10/02/22 [Rx Last Taken Unknown] levofloxacin 750 mg tablet 750 mg PO DAILY #5 tabs 10/08/22 [Rx Last Taken Unknown] Allergy/AdvReac Type Severity Reaction Status Date / Time nitrofurantoin Allergy Unknown Verified 10/08/22 13:20 [From Macrobid] propoxyphene Allergy Unknown Verified 10/08/22 13:20 [From Darvocet-N] cefaclor [From Ceclor] AdvReac Other Verified 10/08/22 13:20 Family History Mother Cancer Father Cancer Heart disease Myocardial infarction Brother Heart disease Myocardial infarction Surgical History History of cholecystectomy History of hysterectomy History of knee surgery Social History Smoking Status: Current every day smoker tobacco type: cigarettes ROS ROS ED Constitutional Constitutional ED: Reports malaise; Denies chills or fever(s) Eyes Eyes: Denies change in vision or diplopia ENT ENT ED: Denies rhinorrhea or sore throat Cardiovascular Cardiovascular: Denies chest pain or palpitations Respiratory/Chest Respiratory/Chest: Reports as per HPI, cough, dyspnea on exertion, hemoptysis and sputum Gastrointestinal Gastrointestinal: Denies abdominal pain, diarrhea, nausea or vomiting Genitourinary Genitourinary ED: Denies dysuria or hematuria Musculoskeletal Musculoskeletal: Denies back pain or neck pain Integumentary Denies abscess or rash Neurologic Neurologic: Denies headache(s), paresthesias or weakness Psychiatric Psychiatric: Denies anxiety or suicidal thoughts EXAM Physical Exam Const Vital Signs: 10/08/22 13:20 10/08/22 13:43 10/08/22 13:44 Temperature 98.6 F 97.2 F L Temperature Source Temporal Oral Pulse Rate 61 63 Respiratory Rate 18 18 Respiratory Effort Short of Breath Respiratory Depth Normal Respiratory Pattern Normal Blood Pressure 141/79 H 144/76 H Blood Pressure Mean 99 98 Pulse Ox 96 95 Oxygen Delivery Method Room Air Room Air Room Air 10/08/22 14:26 10/08/22 14:38 Temperature 97.6 F L Temperature Source Oral Pulse Rate 72 63 Respiratory Rate 18 19 H Respiratory Effort Respiratory Depth Respiratory Pattern Normal Blood Pressure 142/71 H Blood Pressure Mean 94 Pulse Ox 97 Oxygen Delivery Method Room Air Positive well nourished, well developed and obese Constitutional Narrative: Well-appearing, conversive in full sentences in no distress. No coughing throughout exam initially. General Appearance ED: well developed and NAD Nutritional Appearance: obese HEENT Reports moist mucous membranes normocephalic and atraumatic Eyes PERRL and EOMs intact bilaterally Neck full ROM and supple Resp normal respiratory effort Resp Narrative: Expiratory wheezes otherwise clear and equal bilaterally Cardio regular rate, regular rhythm and no murmurs Rate: Negative for tachycardic GI non-tender and non-distended Auscultation: normoactive bowel sounds Palpation: soft Back/Spine no CVA tenderness General Back: other FROM Extremity normal to inspection and no calf tenderness General Extremety ED: Negative for edema, pulses abnormal or tenderness General Extremity: Negative for edema or pulses abnormal Neuro oriented x3, CN's II-XII intact bilaterally and no sensory deficits noted Sensorium / Orientation: awake and alert Motor Exam: strength 5/5 throughout Psych mental status grossly normal Skin no rashes or lesions noted and no wounds MDM MDM MDM Narrative Medical decision making narrative: Given the patient's symptoms I think it is reasonable to obtain a CT. However I obtained labs including a D-dimer first to see if I needed to obtain a CTA or just regular CT of the chest to evaluate for pneumonia. Her D-dimer returned elevated so CT angiography was performed, I reviewed the images and the results as noted below by the radiologist. I agree with these results which is essentially that the patient has pneumonia which is what she was being treated for for the past week, there is no mass and there is no pulmonary embolus seen. The patient is doing very well. It is noted that she has a couple of metamyelocytes but otherwise no shift in her white blood count that is 6.4. The etiology of this is unknown, but her vital signs are normal and she is not hypoxic, and conversive in full sentences and well-appearing, not septic. Reviewed prior records: Chest x-ray obtained 10/01/22, 1 week ago that was negative according to radiology interpretation. Given all of this, and the fact that there is no prior imaging recently that shows any infiltrate, it is not for certain that this is failure of outpatient therapy. However, I do think it is reasonable to consider that and to change her antibiotic, but she does not need to be admitted at this time for any of this. I will have her discontinue the doxycycline and we will switch her to Levaquin pneumonia dosing. She is on prednisone but has 1 dose left so I think this will minimize her chances of tendon injuries. Outpatient follow-up advised after the weekend, or returning if worse she is comfortable with that plan. Lab Data Attestation: I reviewed the patient's lab results. Labs: Laboratory Results - last 24 hr 10/08/22 10/08/22 10/08/22 14:37 14:37 14:37 WBC 6.4 RBC 4.57 Hgb 11.7 L Hct 38.1 MCV 83.4 MCH 25.6 L MCHC 30.7 L RDW Std Deviation 40.4 RDW Coeff of Tracey 13.5 Plt Count 270 MPV 9.2 Immature Gran % (Auto) CLINICAL STUDY MANAGER Neut % (Auto) CLINICAL STUDY MANAGER Lymph % (Auto) CLINICAL STUDY MANAGER [place] % (Auto) CLINICAL STUDY MANAGER Eos % (Auto) CLINICAL STUDY MANAGER Baso % (Auto) CLINICAL STUDY MANAGER Absolute Neuts (auto) 4.1 Absolute Lymphs (auto) 1.60 Total Counted CLINICAL STUDY MANAGER Neutrophils % (Manual) 64 Lymphocytes % (Manual) 25 Monocytes % (Manual) 7 Eosinophils % (Manual) 1 Metamyelocytes % 3 H Nucleated RBC % 0 Diff Path Review May foll Platelet Estimate ADEQUATE RBC Morphology NORM C+C D-Dimer Quant (PE/DVT) 1.24 H* Sodium 142 Potassium 4.2 Chloride 108 H Carbon Dioxide 28.0 Anion Gap 6 BUN 20 H Creatinine 0.78 Estim Creat Clear Calc 71.79 Est GFR (MDRD) Af Amer 95 Est GFR (MDRD) Non-Af 79 BUN/Creatinine Ratio 25.5 H Glucose 131 H Calcium 9.1 Troponin I High Sens 5 Radiography Diagnostic Testing: Clinical Impression(s) from Imaging Studies Chest CTA 10/08/22 15:07 IMPRESSION: 1. No evidence of pulmonary embolus. 2. No aortic dissection or aneurysm. 3. Atelectasis versus infiltrate in the medial right middle lobe. Lungs are otherwise clear. Electronically Signed: Biju DO Ayanna at 16:49 EST Reading Location ID and State: [address] [place] [address] Tel [phone], Service support , Rhythm Strip Rhythm Strip: Sinus Rhythm Rate: 60 Ectopy: None EKG Initial EKG: Attestation: I personally reviewed and interpreted this EKG as follows: Interpretation: Sinus Rhythm and No Acute Injury Pattern Comments: Artifact present. Appears to be normal EKG otherwise. Discharge Plan Triage Chief Complaint: Cough ED Provider: Sergio Ruiz Dx/Rx/DC Orders Clinical Impression: Cough with hemoptysis, Right middle lobe pneumonia Instructions: ED Hemoptysis, ED Pneumonia (Adult) Prescriptions: New levofloxacin 750 mg tablet 750 mg PO DAILY Qty: 5 0RF Continued methadone 10 MG tablet 10 mg PO TID Label Comments: pain lisinopril 20 MG tablet 20 mg PO DAILY Label Comments: blood pressure/heart acyclovir [Zovirax] 400 MG tablet 400 mg PO BID PRN (Reason: Not Specified) Label Comments: antiviral hydrocodone-acetaminophen [[place]] 1 TABLET tablet 1 ea PO TID PRN (Reason: Pain) Label Comments: pain paroxetine HCl 20 MG tablet 20 mg PO DAILY Label Comments: mental health promethazine 25 MG tablet 25 mg PO Q6H PRN PRN (Reason: Nausea) Label Comments: nausea lorazepam 1 MG tablet 1 mg PO DAILY PRN PRN (Reason: Anxiety) Label Comments: anxiety oxybutynin chloride 5 MG tablet 5 mg PO BID Label Comments: urination bupropion HCl [Wellbutrin XL] 150 MG tablet extended release 24 hr 150 mg PO QHS Label Comments: mental health Omeprazole [Prilosec] 40 MG capsule 40 mg PO DAILY Label Comments: acid reflux phenazopyridine 100 MG tablet 100 mg PO TID PRN (Reason: URINE ISSUES) ondansetron 4 MG tablet 4 mg PO Q8H PRN PRN (Reason: Nausea) Qty: 10 0RF aspirin 81 MG tablet 81 mg PO QHS Label Comments: heart health potassium chloride 10 MEQ capsule, extended release 10 meq PO DAILY PRN (Reason: LOW POTASSIUM) benzonatate 200 MG capsule 200 mg PO TID PRN (Reason: Cough) furosemide 20 MG tablet 20 mg PO DAILY PRN (Reason: EDEMA) magnesium chloride 71.5 MG tablet,delayed release (DR/EC) 2 tab PO DAILY Propranolol Hcl [Propranolol Hcl Er] 60 MG Cap.Sa.24h 60 mg PO DAILY furosemide 20 mg tablet 20 mg PO DAILY Qty: 5 0RF guaifenesin [Mucinex] 600 mg tablet extended release 12hr 600 mg PO BID Qty: 14 0RF azelastine 137 mcg (0.1 %) aerosol,spray 2 spray intranasal BID Qty: 30 0RF Rx Instructions: administer into each nostril Held fluconazole [Diflucan] 150 mg tablet 150 mg PO DAILY Qty: 1 0RF Hold Instructions: Resume on 10/20/22. due to antibiotic interaction Rx Instructions: Take if not better in 1 week from ER visit Primary Care Provider: Keila Sullivan Referrals: Keila Sullivan MD [Primary Care Provider] - (After the weekend. Call for appointment.) Activity Restrictions/Additional Instructions: You may discontinue the doxycycline when you start the new antibiotic. Disposition Disposition: Home, Self Care
[2022-10-08 14:26] VITALS: PULSE 72; RESP 18
[2022-10-08] MEDS: Ipratropium/Albuterol Sulfate 3 ML AMPUL.NEB INHALATION (14:28)
[2022-10-08 14:38] VITALS: BP 142/71; PULSE 63; RESP 19; TEMP 36.4; O2SAT 97
[2022-10-08 14:46] LABS: Basophil# 0.06 X10^3/uL; Eosinophil# 0.13 X10^3/uL; Hematocrit 38.1 % (37-47); Hemoglobin 11.7 g/dL (12.0-15.0); Lymphocyte # 1.81 X10^3/ul (0.83-4.51); Mean Corp Hgb Conc 30.7 g/dL (32-36); Mean Corpuscular Hgb 25.6 pg (27.0-32.0); Mean Corpuscular Volume 83.4 fL (81-99); Mean Platelet Vol. 9.2 fl (6.2-12.0); Monocyte# 0.36 X10^3/uL; NRBC Flagged by Analyzer 0 % (0-5); Neutrophil # 3.72 X10^3/uL (2.7-7.7); POSITIVE COUNT YES; POSITIVE MORPHOLOGY YES; Platelet Count 270 K/mm3 (150-450); RBC Distribution Width CV 13.5 % (11.6-14.6); RBC Distribution Width SD 40.4 fl (35.1-43.9); Red Blood Count 4.57 M/mm3 (4.2-5.4); White Blood Count 6.4 K/mm3 (4.4-11.0)
[2022-10-08 14:48] LABS: Differential Indicated SCAN CRITERIA MET
[2022-10-08 15:01] LABS: D-Dimer Quantitative (DVT/PE) 1.24 FEU/ug/m (0.27-0.49)
[2022-10-08 15:02] LABS: Anion Gap 6 (5-15); BUN 20 mg/dL (7-18); BUN/Creat Ratio 25.5 RATIO (10-20); Calcium,Total 9.1 mg/dL (8.5-10.1); Chloride 108 mmol/L (98-107); Creatinine, Serum 0.78 mg/dL (0.55-1.02); EST Glomerular Filtration Rate 79 mL/min (>60); Est Glom Filt Rate - Afr Amer 95 mL/min (>60); Estimated Creatinine Clearance 71.79 ml/min; Glucose 131 mg/dL (74-106); Potassium 4.2 mmol/L (3.5-5.1); Sodium Level 142 mmol/L (136-145); Troponin-I HS 5 pg/mL (3.0-54.0)
--- NOTE | 2022-10-08 15:07 | CT_ITS ---
STUDY: CTA CHEST REASON FOR EXAM: Female, 62 years old. Hemoptysis. Elevated d-dimer. RADIATION DOSAGE (If Supplied By Facility): CTDIvol = ( 12.66 ) mGy, DLP = ( 525.61 ) mGycm TECHNIQUE: The examination was performed with the intravenous administration of IV 100mL Isovue-370. Post-processing of the angiographic images was performed, with multiplanar reformation and 3D reconstruction. Individualized dose optimization techniques were used for this CT. COMPARISON: Chest, October 01, 2022. FINDINGS: Normal enhancement of the main pulmonary artery and right and left pulmonary arteries. Normal enhancement of the bilateral peripheral pulmonary arteries. There is no demonstrated pulmonary embolism. Normal thoracic aorta and visualized great vessels. There is no demonstrated aortic dissection. Normal heart and pericardium. Normal mediastinum. Normal hilar regions. Normal visualized trachea and bronchi. The lungs are well expanded. Atelectasis versus infiltrate in the medial right middle lobe. Lungs are otherwise clear. Normal pleura. Normal chest wall structures. Normal osseous structures. Normal visualized upper abdomen. CT/CTA Chest W/WO Contrast IMPRESSION: 1. No evidence of pulmonary embolus. 2. No aortic dissection or aneurysm. 3. Atelectasis versus infiltrate in the medial right middle lobe. Lungs are otherwise clear. Electronically Signed: Biju Urena DO at 16:49 EST ,
[2022-10-08 15:11] LABS: Eosinophil 1 % (0-5); Lymphocyte 25 % (19-41); Metamyelocyte 3 % (0-1); Monocyte 7 % (0-10); Neutrophil-Segmented 64 % (47-70); Platelet Estimate ADEQUATE (ADEQ); Red Cell Morphology NORM C+C NORMAL (NORM C&C)
[2022-10-08 15:12] LABS: Scan Smear per Review Criteria MANUAL DIFF
[2022-10-08 15:13] LABS: Absolute Neutrophil Count 4.1 X10^3/uL (2.0-7.7)
[2022-10-08 17:38] VITALS: BP 139/78; PULSE 81; RESP 19; O2SAT 96
[2022-10-11 14:06] LABS: Pathologist Review Reviewed
== END 2022-10-08 17:39 | disposition home or self-care (01) ==
PROVIDERS: Emergency Provider Emergency Medicine; PCP Internal Medicine; Visit Provider Emergency Medicine
DX: R04.2 Hemoptysis (principal); Z68.42 Body mass index [BMI] 45.0-49.9, adult; J18.9 Pneumonia, unspecified organism; I10 Essential (primary) hypertension; E66.9 Obesity, unspecified; F17.210 Nicotine dependence, cigarettes, uncomplicated; Z79.82 Long term (current) use of aspirin; Z79.899 Other long term (current) drug therapy; Z86.16 Personal history of COVID-19; Z86.73 Personal history of transient ischemic attack (TIA), and cerebral infarction without residual deficits
CPT/HCPCS: 71275; 80048; 84484; 85025; 85379; 93005; 94640; 96360; 96361; 99283; J7030; Q9967; A4216

== ENCOUNTER 2023-08-09 23:28 | Emergency (ER) | payer MEDICAID, SELFPAY ==
[2023-08-09 23:29] VITALS: BP 137/72; PULSE 68; RESP 16; TEMP 36.1; O2SAT 99; BMI 49.3
--- NOTE | 2023-08-10 00:03 | EX.ED.DYSGE1 ---
HPI History of Present Illness Chief Complaint: Complaint Informant: patient Onset/Context/Timing Onset: Today Context: Sudden Onset Timing: Continuous Quality: Burning, spasm Location: Suprapubic area Worsened by: Urination Relieved by: Nothing Narrative Narrative: Patient presents with severe UTI symptoms that began tonight. Patient states it began rather suddenly. Patient states it only started a few hours prior to arrival. Patient describes it as burning and spasms. Patient states it is mainly over the suprapubic area. Patient denies any back pain. Patient denies any nausea or vomiting. Patient denies any fevers or chills. Patient states nothing seems to help with her symptoms. [facility] Medical History Chronic neck and back pain COVID COVID-19 Heart disease Hypertension Incontinence Knee pain Lung disease ALAYNA (obstructive sleep apnea) Stomach ulcer Stroke Home Medications Omeprazole [Prilosec] 40 mg PO DAILY 11/29/16 [History Last Taken Unknown] acyclovir 400 mg tablet (Zovirax) 400 mg PO BID PRN Not Specified 11/29/16 [History Last Taken Unknown] bupropion HCl 150 mg 24 hr tablet, extended release (Wellbutrin XL) 150 mg PO QHS 11/29/16 [History Last Taken Unknown] hydrocodone 7.5 mg-acetaminophen 325 mg tablet ([place]) 1 ea PO TID PRN Pain 11/29/16 [History Last Taken Unknown] lisinopril 20 mg tablet 20 mg PO DAILY 11/29/16 [History Last Taken Unknown] lorazepam 1 mg tablet 1 mg PO DAILY PRN PRN Anxiety 11/29/16 [History Last Taken Unknown] methadone 10 mg tablet 10 mg PO TID 11/29/16 [History Last Taken Unknown] paroxetine HCl 20 mg tablet 20 mg PO DAILY 11/29/16 [History Last Taken Unknown] promethazine 25 mg tablet 25 mg PO Q6H PRN PRN Nausea 11/29/16 [History Last Taken 01/19/17 23:00] ondansetron 4 mg disintegrating tablet 4 mg PO Q8H PRN PRN Nausea #10 tabs 01/20/17 [Rx Last Taken Unknown] aspirin 81 mg tablet,delayed release 81 mg PO QHS 06/17/17 [History Last Taken Unknown] Propranolol Hcl [Propranolol Hcl Er] 60 mg PO DAILY 12/01/19 [History Last Taken Unknown] benzonatate 200 mg capsule 200 mg PO TID PRN Cough 12/01/19 [History Last Taken Unknown] furosemide 20 mg tablet 20 mg PO DAILY PRN EDEMA 12/01/19 [History Last Taken Unknown] magnesium chloride 71.5 mg (magnesium chloride) tablet,delayed release 2 tab PO DAILY 12/01/19 [History Last Taken Unknown] potassium chloride 10 mEq capsule,extended release 10 meq PO DAILY PRN LOW POTASSIUM 12/01/19 [History Last Taken Unknown] furosemide 20 mg tablet 20 mg PO DAILY #5 tabs 09/27/21 [Rx Last Taken Unknown] fluconazole 150 mg tablet (Diflucan) 150 mg PO DAILY #1 TAB 09/25/22 [Rx Last Taken Unknown] azelastine 137 mcg (0.1 %) nasal spray aerosol 2 spray intranasal BID #30 mL 10/02/22 [Rx Last Taken Unknown] phenazopyridine 200 mg tablet (P[place]) 200 mg PO TID #6 tabs 08/10/23 [Rx Last Taken Unknown] sulfamethoxazole 800 mg-trimethoprim 160 mg tablet 1 tab PO BID #6 TABLETS 08/10/23 [Rx Last Taken Unknown] Allergy/AdvReac Type Severity Reaction Status Date / Time nitrofurantoin Allergy Unknown Verified 08/09/23 23:29 [From Macrobid] propoxyphene Allergy Unknown Verified 08/09/23 23:29 [From Darvocet-N] cefaclor [From Ceclor] AdvReac Other Verified 08/09/23 23:29 Family History Mother Cancer Father Cancer Heart disease Myocardial infarction Brother Heart disease Myocardial infarction Surgical History History of cholecystectomy History of hysterectomy History of knee surgery Social History Smoking Status: Former smoker ROS ROS ED Constitutional Constitutional ED: Denies chills or fever(s) Eyes Eyes: Denies blurry vision or change in vision ENT ENT ED: Denies rhinorrhea or sore throat Cardiovascular Cardiovascular: Denies chest pain or palpitations Respiratory/Chest Respiratory/Chest: Denies cough or dyspnea Gastrointestinal Gastrointestinal: Denies nausea or vomiting Genitourinary Genitourinary ED: Reports dysuria; Denies hematuria Musculoskeletal Musculoskeletal: Reports neck pain; Denies back pain Integumentary Reports rash; Denies abscess Neurologic Neurologic: Denies headache(s) or weakness Allergic/Immunologic Allergic/Immunologic ED: Denies mouth swelling or urticaria EXAM Physical Exam Const Vital Signs: 08/09/23 23:29 Temperature 97 F L Temperature Source Temporal Pulse Rate 68 Respiratory Rate 16 Blood Pressure 137/72 H Blood Pressure Mean 93 Pulse Ox 99 Positive well nourished, well developed and obese General Appearance ED: well developed and NAD Nutritional Appearance: obese HEENT Reports moist mucous membranes Neck supple and no JVD Resp normal respiratory effort and clear to auscultation bilaterally Cardio regular rate and regular rhythm GI non-tender and non-distended Palpation: soft Neuro oriented x3, CN's II-XII intact bilaterally and no sensory deficits noted Sensorium / Orientation: alert Motor Exam: strength 5/5 throughout Psych mental status grossly normal MDM MDM MDM Narrative Medical decision making narrative: Differential diagnosis includes urinary tract infection, and dysuria. Urinalysis will be obtained to assess for urinary tract infection. Lab Data Attestation: I reviewed the patient's lab results. Lab results narrative: Urinalysis was reviewed. Leukocyte esterase was 500 with greater than 100 white blood cells. There were positive nitrates. Occult blood was 250 with 10-25 red blood cells. Labs: Laboratory Results - last 24 hr 08/10/23 00:05 Urine Color Yellow Urine Clarity Sl. Cloudy Urine pH 5.0 Ur Specific [place] 1.025 Urine Protein 100 H Urine Glucose (UA) Normal Urine Ketones Negative Urine Occult Blood 250 H Urine Nitrite Positive H Urine Bilirubin Negative Urine Urobilinogen 1 H Ur Leukocyte Esterase 500 H Urine RBC 10-25 SEEN Urine WBC >100 SEEN Ur Squamous Epith Cells 0 SEEN Urine Bacteria 0 SEEN Urine Mucus 0 SEEN Treatment and Re-Evaluation :: Patient was given a dose of Pyridium here. Urine culture was ordered. Patient was given a dose of Bactrim here. Patient was given prescription for Bactrim and Pyridium. Patient was instructed to drink plenty of fluids. Patient was instructed to follow-up with her primary care physician in 5 to 7 days. Patient understood and was agreeable with the plan. All questions were answered. Discharge Plan Triage Chief Complaint: Complaint ED Provider: Bart Blanco Dx/Rx/DC Orders Clinical Impression: Urinary tract infection, Morbid obesity with BMI of 50.0-59.9, adult Instructions: ED Cystitis Female Adult Prescriptions: New phenazopyridine [Pyridium] 200 mg tablet 200 mg PO TID Qty: 6 0RF sulfamethoxazole-trimethoprim [sulfamethoxazole-trimethoprim] 800-160 mg tablet 1 tab PO BID Qty: 6 0RF No Action methadone 10 MG tablet 10 mg PO TID Patient Comments: pain lisinopril 20 MG tablet 20 mg PO DAILY Patient Comments: blood pressure/heart acyclovir [Zovirax] 400 MG tablet 400 mg PO BID PRN (Reason: Not Specified) Patient Comments: antiviral hydrocodone-acetaminophen [[place]] 1 TABLET tablet 1 ea PO TID PRN (Reason: Pain) Patient Comments: pain paroxetine HCl 20 MG tablet 20 mg PO DAILY Patient Comments: mental health promethazine 25 MG tablet 25 mg PO Q6H PRN PRN (Reason: Nausea) Patient Comments: nausea lorazepam 1 MG tablet 1 mg PO DAILY PRN PRN (Reason: Anxiety) Patient Comments: anxiety bupropion HCl [Wellbutrin XL] 150 MG tablet extended release 24 hr 150 mg PO QHS Patient Comments: mental health Omeprazole [Prilosec] 40 MG capsule 40 mg PO DAILY Patient Comments: acid reflux ondansetron 4 MG tablet 4 mg PO Q8H PRN PRN (Reason: Nausea) Qty: 10 0RF aspirin 81 MG tablet 81 mg PO QHS Patient Comments: heart health potassium chloride 10 MEQ capsule, extended release 10 meq PO DAILY PRN (Reason: LOW POTASSIUM) benzonatate 200 MG capsule 200 mg PO TID PRN (Reason: Cough) furosemide 20 MG tablet 20 mg PO DAILY PRN (Reason: EDEMA) magnesium chloride 71.5 MG tablet,delayed release (DR/EC) 2 tab PO DAILY Propranolol Hcl [Propranolol Hcl Er] 60 MG Cap.Sa.24h 60 mg PO DAILY furosemide 20 mg tablet 20 mg PO DAILY Qty: 5 0RF fluconazole [Diflucan] 150 mg tablet 150 mg PO DAILY Qty: 1 0RF Hold Instructions: Resume on 10/20/22. due to antibiotic interaction Rx Instructions: Take if not better in 1 week from ER visit azelastine 137 mcg (0.1 %) aerosol,spray 2 spray intranasal BID Qty: 30 0RF Rx Instructions: administer into each nostril Primary Care Provider: Keila Sullivan Referrals: Keila Sullivan MD [Primary Care Provider] - 3-5 Days Disposition Disposition: Home, Self Care
[2023-08-10 00:27] LABS: Bacteria 0 SEEN /hpf (None Seen); Mucous, Urine 0 SEEN /hpf (<or=2+); Squamous Epithelial Cells - UA 0 SEEN /hpf (5-10)
[2023-08-10] MEDS: Phenazopyridine 95 MG Tablet 190 MG PO (00:27)
[2023-08-10 00:32] LABS: Color, Urine Yellow (Yellow); Glucose, Dipstick Normal (Normal); Ketone-Dipstick Negative (Negative); Leukocyte Esterase-Dipstick 500 /ul (Negative); Nitrite-Dipstick Positive (Negative); Occult Blood-Urine 250 /ul (Negative); Protein-Dipstick 100 mg/dl (Negative); Specific Gravity, Urine 1.025 (1.002-1.030); Urine Bilirubin Dipstick Negative (Negative); Urine Clarity Sl. Cloudy (Clear); Urine Urobilinogen 1 mg/dl (Normal)
[2023-08-10 00:57] LABS: Red Blood Cells-Urine 10-25 SEEN /hpf (0-5); White Blood Cells >100 SEEN /hpf (0-5)
[2023-08-10] MEDS: Smz/Tmp Ds Tablet 1 TABLET PO (01:08)
== END 2023-08-10 01:42 | disposition home or self-care (01) ==
PROVIDERS: Emergency Provider Emergency Medicine; PCP Internal Medicine; Visit Provider Emergency Medicine
DX: N39.0 Urinary tract infection, site not specified (principal); E66.01 Morbid (severe) obesity due to excess calories; Z68.42 Body mass index [BMI] 45.0-49.9, adult; I11.9 Hypertensive heart disease without heart failure; Z79.82 Long term (current) use of aspirin; Z79.899 Other long term (current) drug therapy; Z86.73 Personal history of transient ischemic attack (TIA), and cerebral infarction without residual deficits; Z86.16 Personal history of COVID-19; Z87.891 Personal history of nicotine dependence
CPT/HCPCS: 81001; 87086; 87088; 87186; 99283

== ENCOUNTER 2024-09-03 17:30 | Emergency (ER) | payer MEDICAID, SELFPAY ==
[2024-09-03 17:31] VITALS: BP 147/73; PULSE 76; RESP 19; TEMP 36.4; O2SAT 95
[2024-09-03 17:57] VITALS: O2SAT 94
--- NOTE | 2024-09-03 17:57 | RAD_ITS ---
EXAM: XR CHEST, 1 VIEW CLINICAL INDICATION: dyspnea TECHNIQUE: Frontal view of the chest. COMPARISON: 10/01/2022 FINDINGS: LUNGS AND PLEURAL SPACES: Bibasilar pulmonary opacities may be atelectasis or possibly pneumonia. No pneumothorax. No effusion. HEART: No significant abnormality. Cardiac silhouette not enlarged. MEDIASTINUM: Central airways and mediastinal contour are unremarkable. BONES/JOINTS: No significant abnormality. No acute fracture. SOFT TISSUES: No significant abnormality. RAD/Chest 1 View (Portable) IMPRESSION: Bibasilar pulmonary opacities may be atelectasis or possibly pneumonia. Electronically Signed: Willy Amaya DO at 18:42 EST ,
--- NOTE | 2024-09-03 17:57 | EKG12_ITS ---
Test Reason : SOB Blood Pressure : */* mmHG Vent. Rate : 81 BPM Atrial Rate : 81 BPM P-R Int : 220 ms QRS Dur : 84 ms QT Int : 390 ms P-R-T Axes : -4 7 55 degrees QTcB Int : 453 ms Sinus rhythm with 1st degree A-V block T wave abnormality, consider anterior ischemia Abnormal ECG Confirmed by PATTIE SEPULVEDA, ROOSEVELT ([id number]), slot editor CONSTANCE PIERSON ([id number]) on 09/11/2024 6:37:25 AM Referred By: Confirmed By: ROOSEVELT BLANKENSHIP MD
--- NOTE | 2024-09-03 17:58 | EDS_ITS ---
HPI History of Present Illness Chief Complaint: Shortness of Breath Informant: patient Narrative Narrative: 64-year-old female presenting to the emergency room with shortness of breath. Patient states that really over the past week she has had a significant decrease in her ability to ambulate without shortness of breath. She notes lower extremity edema. Her doctor recently started her on some Lasix. She states that she chronically sleeps in a recliner. She does not wear home oxygen. She denies any cough or fever. No rhinorrhea or sore throat. The patient notes that she has not really had any chest pain. She has a history of sleep apnea but has not been able to use her BiPAP at night. She notes that her pulse ox when she wakes up at times is 80% PFSH PFSH Medical History ALAYNA (obstructive sleep apnea) COVID-19 COVID Incontinence Chronic neck and back pain Stroke Knee pain Stomach ulcer Heart disease Lung disease Hypertension Home Medications ?Medication ?Instructions ?Recorded ?Last Taken ?Type Omeprazole [Prilosec] 40 mg PO DAILY 11/29/16 Unknown History acyclovir 400 mg tablet (Zovirax) 400 mg PO BID PRN Not Specified 11/29/16 Unknown History bupropion HCl 150 mg 24 hr tablet, 150 mg PO QHS 11/29/16 Unknown History extended release (Wellbutrin XL) hydrocodone 7.5 mg-acetaminophen 1 ea PO TID PRN Pain 11/29/16 Unknown History 325 mg tablet ([place]) lisinopril 20 mg tablet 20 mg PO DAILY 11/29/16 Unknown History lorazepam 1 mg tablet 1 mg PO DAILY PRN PRN Anxiety 11/29/16 Unknown History methadone 10 mg tablet 10 mg PO TID 11/29/16 Unknown History paroxetine HCl 20 mg tablet 20 mg PO DAILY 11/29/16 Unknown History promethazine 25 mg tablet 25 mg PO Q6H PRN PRN Nausea 11/29/16 01/19/17 23:00 History ondansetron 4 mg disintegrating 4 mg PO Q8H PRN PRN Nausea #10 tabs 01/20/17 Unknown Rx tablet aspirin 81 mg tablet,delayed 81 mg PO QHS 06/17/17 Unknown History release Propranolol Hcl [Propranolol Hcl 60 mg PO DAILY 12/01/19 Unknown History Er] benzonatate 200 mg capsule 200 mg PO TID PRN Cough 12/01/19 Unknown History furosemide 20 mg tablet 20 mg PO DAILY PRN EDEMA 12/01/19 Unknown History magnesium chloride 71.5 mg 2 tab PO DAILY 12/01/19 Unknown History (magnesium chloride) tablet,delayed release potassium chloride 10 mEq 10 meq PO DAILY PRN LOW POTASSIUM 12/01/19 Unknown History capsule,extended release furosemide 20 mg tablet 20 mg PO DAILY #5 tabs 09/27/21 Unknown Rx fluconazole 150 mg tablet 150 mg PO DAILY #1 TAB 09/25/22 Unknown Rx (Diflucan) azelastine 137 mcg (0.1 %) nasal 2 spray intranasal BID #30 mL 10/02/22 Unknown Rx spray phenazopyridine 200 mg tablet 200 mg PO TID #6 tabs 08/10/23 Unknown Rx (Pyridium) sulfamethoxazole 800 1 tab PO BID #6 TABLETS 08/10/23 Unknown Rx mg-trimethoprim 160 mg tablet furosemide 80 mg tablet (Lasix) 80 mg PO DAILY 5 days #5 tabs 09/03/24 Unknown Rx Allergy/AdvReac Type Severity Reaction Status Date / Time nitrofurantoin (From Allergy Unknown Verified 08/09/23 23:29 Macrobid) propoxyphene (From Allergy Unknown Verified 08/09/23 23:29 Darvocet-N) cefaclor (From Ceclor) AdvReac Other Verified 08/09/23 23:29 Family History Mother Cancer Father Cancer Heart disease Myocardial infarction Brother Heart disease Myocardial infarction Surgical History History of knee surgery History of hysterectomy History of cholecystectomy Social History Smoking Status: Former smoker ROS ROS ED Constitutional Constitutional ED: Denies chills or weight loss Eyes Eyes: Denies change in vision or diplopia ENT ENT ED: Denies ear pain, rhinorrhea or sore throat Cardiovascular Cardiovascular: Denies chest pain, orthopnea, palpitations or racing heartbeat Respiratory/Chest Respiratory/Chest: Reports dyspnea and dyspnea on exertion; Denies cough or orthopnea Gastrointestinal Gastrointestinal: Denies abdominal pain, diarrhea, nausea or vomiting Genitourinary Genitourinary ED: Denies dysuria, hematuria or urinary frequency Musculoskeletal Musculoskeletal: Reports other Details: Lower extremity swelling ; Denies arthralgias or myalgias Integumentary Denies abscess or rash Neurologic Neurologic: Denies headache(s) or weakness Psychiatric Psychiatric: Denies anxiety, depression, suicidal ideation or suicidal thoughts Endocrine Endocrinology: Denies polydipsia, polyphagia or polyuria Allergic/Immunologic Allergic/Immunologic ED: Denies mouth swelling, tongue swelling or urticaria EXAM Physical Exam Const Vital Signs: 09/03/24 17:31 09/03/24 18:21 09/03/24 18:30 Temperature 97.5 F L Temperature Source Temporal Pulse Rate 76 86 Respiratory Rate 19 H 18 Respiratory Effort Normal Non-Labored Respiratory Depth Normal Respiratory Pattern Normal Blood Pressure 147/73 H 132/77 H Blood Pressure Mean 97 95 Pulse Ox 95 94 Oxygen Delivery Method Room Air Room Air Room Air Positive well nourished, well developed and obese General Appearance ED: well developed and NAD Nutritional Appearance: obese HEENT Reports normocephalic, head/scalp atraumatic and moist mucous membranes Eyes PERRL and EOMs intact bilaterally Neck no lymphadenopathy, supple and no JVD Resp normal respiratory effort and clear to auscultation bilaterally Cardio regular rate, regular rhythm and no murmurs GI normal to inspection, nondistended, normoactive bowel sounds and non-tender Palpation: soft Back/Spine no CVA tenderness and normal ROM Extremity General Extremety ED: Yes edema General Extremity: edema bilateral lower extremity Details: mild Neuro oriented x3 and CN's II-XII intact bilaterally Sensorium / Orientation: alert Motor Exam: strength 5/5 throughout Psych mental status grossly normal Mood & Affect: Negative for depressed or tearful Skin no rashes or lesions noted and no wounds MDM MDM MDM Narrative Medical decision making narrative: Differential diagnosis includes but not limited to congestive heart failure cardiac dysrhythmia coronary artery disease dehydration electrolyte abnormalities lymphedema pulmonary hypertension pleural effusion pneumonia My independent interpretation of the chest x-ray is no significant pleural effusion definitive infiltrate or evidence of CHF. White count 6.6 hemoglobin is 12 platelet count is 270. Troponin BNP within normal limits creatinine is normal. Patient is able to ambulate in the hallway at 94%. I would encourage her to use her BiPAP. She would like some more Lasix and notes that the dose that she was using did not seem to make her urinate as much. Can write her 80 mg for the next 5 days but asked that she follow-up with her doctor. She does not recall the last time she had an echocardiogram this may be of benefit in further assessing her dyspnea. Patient is comfortable with discharge and following up History & Record Review Discussion w/independent historian: Patient Lab Data Attestation: I reviewed the patient's lab results. Labs: Laboratory Results - last 24 hr 09/03/24 18:16 WBC 6.6 RBC 4.72 Hgb 12.0 Hct 38.8 MCV 82.2 MCH 25.4 L MCHC 30.9 L RDW Std Deviation 45.2 H RDW Coeff of Tracey 15.1 H Plt Count 270 MPV 9.4 Immature Gran % (Auto) 0.600 Neut % (Auto) 47.2 Lymph % (Auto) 38.7 [place] % (Auto) 10.0 Eos % (Auto) 2.7 Baso % (Auto) 0.8 Absolute Neuts (auto) 3.1 Absolute Lymphs (auto) 2.54 Nucleated RBC % 0 Sodium 141 Potassium 3.8 Chloride 108 H Carbon Dioxide 28.0 Anion Gap 5 BUN 10 Creatinine 0.77 Est GFR (MDRD) Af Amer 97 Est GFR (MDRD) Non-Af 80 BUN/Creatinine Ratio 13.0 Glucose 105 Calcium 9.6 Troponin I High Sens 5 B-Natriuretic Peptide 16.1 Radiography Diagnostic Testing: Clinical Impression(s) from Imaging Studies Chest X-Ray 09/03/24 17:57 IMPRESSION: Bibasilar pulmonary opacities may be atelectasis or possibly pneumonia. Electronically Signed: Willy Amaya DO at 18:42 EST , EKG Initial EKG: Attestation: I personally reviewed and interpreted this EKG as follows: Comments: Sinus rhythm with a first-degree AV block ventricular rate of 81 bpm Discharge Plan Triage Chief Complaint: Shortness of Breath ED Provider: Dipesh Cao Dx/Rx/DC Orders Clinical Impression: Acute dyspnea, Lymphedema Instructions: ED Dyspnea, ED Lymphedema Prescriptions: New furosemide [Lasix] 80 mg tablet 80 mg PO DAILY 5 Days Qty: 5 0RF No Action methadone 10 MG tablet 10 mg PO TID Patient Comments: pain lisinopril 20 MG tablet 20 mg PO DAILY Patient Comments: blood pressure/heart acyclovir [Zovirax] 400 MG tablet 400 mg PO BID PRN (Reason: Not Specified) Patient Comments: antiviral hydrocodone-acetaminophen [[place]] 1 TABLET tablet 1 ea PO TID PRN (Reason: Pain) Patient Comments: pain paroxetine HCl 20 MG tablet 20 mg PO DAILY Patient Comments: mental health promethazine 25 MG tablet 25 mg PO Q6H PRN PRN (Reason: Nausea) Patient Comments: nausea lorazepam 1 MG tablet 1 mg PO DAILY PRN PRN (Reason: Anxiety) Patient Comments: anxiety bupropion HCl [Wellbutrin XL] 150 MG tablet extended release 24 hr 150 mg PO QHS Patient Comments: mental health Omeprazole [Prilosec] 40 MG capsule 40 mg PO DAILY Patient Comments: acid reflux ondansetron 4 MG tablet 4 mg PO Q8H PRN PRN (Reason: Nausea) Qty: 10 0RF aspirin 81 MG tablet 81 mg PO QHS Patient Comments: heart health potassium chloride 10 MEQ capsule, extended release 10 meq PO DAILY PRN (Reason: LOW POTASSIUM) benzonatate 200 MG capsule 200 mg PO TID PRN (Reason: Cough) furosemide 20 MG tablet 20 mg PO DAILY PRN (Reason: EDEMA) magnesium chloride 71.5 MG tablet,delayed release (DR/EC) 2 tab PO DAILY Propranolol Hcl [Propranolol Hcl Er] 60 MG Cap.Sa.24h 60 mg PO DAILY furosemide 20 mg tablet 20 mg PO DAILY Qty: 5 0RF fluconazole [Diflucan] 150 mg tablet 150 mg PO DAILY Qty: 1 0RF Rx Instructions: Take if not better in 1 week from ER visit azelastine 137 mcg (0.1 %) aerosol,spray 2 spray intranasal BID Qty: 30 0RF Rx Instructions: administer into each nostril phenazopyridine [Pyridium] 200 mg tablet 200 mg PO TID Qty: 6 0RF sulfamethoxazole-trimethoprim [sulfamethoxazole-trimethoprim] 800-160 mg tablet 1 tab PO BID Qty: 6 0RF Primary Care Provider: Keila Sullivan Referrals: Keila Sullivan MD [Primary Care Provider] - As soon as possible Activity Restrictions/Additional Instructions: I would strongly recommend you using your BiPAP if able. I would recommend talking to your doctor about an echocardiogram or a stress echo to further evaluate your heart. Print Language: Brazilian Disposition Disposition: Home, Self Care
[2024-09-03 18:23] LABS: Absolute Lymphocyte Count 2.54 X10^3/uL (0.83-4.51); Absolute Neutrophil Count 3.1 X10^3/uL (2.0-7.7); Basophil# 0.05 X10^3/uL; Basophil% 0.8 % (0-1); Eosinophil# 0.18 X10^3/uL; Eosinophils% 2.7 % (0-5); Hematocrit 38.8 % (37-47); Lymphocyte # 2.54 X10^3/ul (0.83-4.51); Lymphocyte % 38.7 % (19-41); Mean Corp Hgb Conc 30.9 g/dL (32-36); Mean Corpuscular Hgb 25.4 pg (27.0-32.0); Mean Corpuscular Volume 82.2 fL (81-99); Mean Platelet Vol. 9.4 fl (6.2-12.0); Monocyte# 0.66 X10^3/uL; NRBC Flagged by Analyzer 0 % (0-5); Neutrophil % 47.2 % (47-70); Platelet Count 270 K/mm3 (150-450); RBC Distribution Width CV 15.1 % (11.6-14.6); RBC Distribution Width SD 45.2 fl (35.1-43.9); Red Blood Count 4.72 M/mm3 (4.2-5.4); White Blood Count 6.6 K/mm3 (4.4-11.0)
[2024-09-03 18:30] VITALS: BP 132/77; PULSE 86; RESP 18; O2SAT 94
[2024-09-03 18:47] LABS: Anion Gap 5 (5-15); BUN 10 mg/dL (7-18); Calcium,Total 9.6 mg/dL (8.5-10.1); Chloride 108 mmol/L (98-107); Creatinine, Serum 0.77 mg/dL (0.55-1.02); EST Glomerular Filtration Rate 80 mL/min (>60); Est Glom Filt Rate - Afr Amer 97 mL/min (>60); Glucose 105 mg/dL (74-106); Potassium 3.8 mmol/L (3.5-5.1); Sodium Level 141 mmol/L (136-145); Troponin-I HS 5 pg/mL (3.0-54.0)
[2024-09-03 18:48] LABS: BNP,B-Type NATRIURETIC PEPTIDE 16.1 pg/mL (0-100)
[2024-09-03 19:00] VITALS: BP 133/74; PULSE 86; RESP 18; O2SAT 93
[2024-09-03 19:41] VITALS: BP 133/74; PULSE 86; RESP 18; TEMP 36.4; O2SAT 93
== END 2024-09-03 19:41 | disposition home or self-care (01) ==
PROVIDERS: Emergency Provider Emergency Medicine; PCP Internal Medicine; Visit Provider Emergency Medicine
DX: R06.09 Other forms of dyspnea (principal); I89.0 Lymphedema, not elsewhere classified; I10 Essential (primary) hypertension; G47.33 Obstructive sleep apnea (adult) (pediatric); Z79.82 Long term (current) use of aspirin; Z79.899 Other long term (current) drug therapy; Z86.16 Personal history of COVID-19; Z87.891 Personal history of nicotine dependence
CPT/HCPCS: 71045; 80048; 83880; 84484; 85025; 93005; 99283; A4216

== ENCOUNTER 2024-12-19 06:44 | Day surgery (SDC) | payer MEDICAID, SELFPAY ==
--- NOTE | 2024-12-05 11:45 | RAD_ITS ---
PROCEDURE: CHEST PA AND LATERAL 12/05/2024 REASON FOR EXAM: FOR HEART CATH TECHNIQUE: Frontal and lateral views of the chest. FINDINGS: Hardware: None Heart: The heart size is normal. Mediastinum: The mediastinal contour is unremarkable. Lungs: The lungs are clear. Bones: The bones are unremarkable. RAD/Chest PA and Lateral IMPRESSION: NEGATIVE CHEST Reading Location: [id number]
[2024-12-05 13:48] LABS: Cholesterol 191 mg/dL (<=200); High Density Lipoprotein 38 mg/dL; Low Density Lipoprotein Calc. 116 mg/dL; Triglycerides 182 mg/dL; Very Low Density Lipoprotein 36 mg/dL (5-40); cholesterol:hdl ratio screen 4.99
[2024-12-13 13:26] LABS: Absolute Lymphocyte Count 3.28 X10^3/uL (0.83-4.51); Absolute Neutrophil Count 2.7 X10^3/uL (2.0-7.7); Basophil# 0.04 X10^3/uL; Basophil% 0.6 % (0-1); Eosinophil# 0.18 X10^3/uL; Eosinophils% 2.6 % (0-5); Hematocrit 37.9 % (37-47); Lymphocyte # 3.28 X10^3/ul (0.83-4.51); Lymphocyte % 47.4 % (19-41); Mean Corp Hgb Conc 31.7 g/dL (32-36); Mean Corpuscular Hgb 25.9 pg (27.0-32.0); Mean Corpuscular Volume 81.7 fL (81-99); Mean Platelet Vol. 10.2 fl (6.2-12.0); Monocyte# 0.66 X10^3/uL; Monocyte% 9.5 % (0-10); NRBC Flagged by Analyzer 0 % (0-5); Neutrophil # 2.74 X10^3/uL (2.7-7.7); Neutrophil % 39.6 % (47-70); Platelet Count 265 K/mm3 (150-450); RBC Distribution Width CV 15.1 % (11.6-14.6); RBC Distribution Width SD 44.8 fl (35.1-43.9); Red Blood Count 4.64 M/mm3 (4.2-5.4); White Blood Count 6.9 K/mm3 (4.4-11.0)
[2024-12-13 14:19] LABS: Anion Gap 11 (5-15); BUN 16 mg/dL (4-19); BUN/Creat Ratio 18.3 RATIO (10-20); Calcium,Total 9.3 mg/dL (7.6-11.0); Carbon Dioxide 23.3 mmol/L (21.0-32.0); Chloride 100 mmol/L (98-108); Creatinine, Serum 0.87 mg/dL (0.70-1.20); EST Glomerular Filtration Rate 73 (>60); Glucose 98 mg/dL (70-99); Potassium 4.1 mmol/L (3.3-5.1); Sodium Level 135 mmol/L (133-145)
--- NOTE | 2024-12-25 15:35 | CL.D_ITS ---
Patient Name: JEFFERY DENNISON Study Date: 12/19/2024 Performing: Edith Truong MD Ht: 67 inches 170.18 cm : 1960 Wt: 358.5 lbs 162.39 kg Age: 64 Gender: female BSA: 2.59 PROCEDURE(S) PERFORMED DC02-([id number])[facility] CLINICAL PROFILE AND INDICATIONS Indications: Suspected CAD Heart Failure: None Stress/Imaging Stress Test w/SPECT MPI: Yes Result: Positive Intermediate RiskStress Test with SPECT MPI: Positive Intermediate Risk CAD Presentations: Other: Dyspnea on exertion CONCLUSIONS 50% calcified Mid LAD RECOMMENDATIONS Medical therapy Risk factor modification DESCRIPTION OF PROCEDURE The patient arrived to the procedure lab. The risks and benefits of the procedure as well as a full description of our services here and current unavailability of surgical backup were fully explained to the patient and/or their significant other prior to the catheterization. The Timeout was completed, verifying the correct patient and procedure. The patient's procedural site was prepped and draped in the usual fashion. Local anesthetic was given subcutaneously to right radial region with Lidocaine 2%. Using a modified Seldinger technique, arterial access was obtained via the right radial artery, a 6Fr sheath was inserted. Left Coronary Artery selective angiography was performed in multiple views using a 5 Fr. 4.0 [place] catheter. Left Coronary Artery selective angiography was performed in multiple views using a 5 Fr. JL3 catheter. Right Coronary Artery selective angiography was then performed in multiple views using a 5 Fr. 3DRC (Diego) catheter.The arterial sheath was pulled and a TR Band was applied for hemostasis. 12cc of air CORONARY ANGIOGRAPHY DOMINANCE: Left Dominant LEFT MAIN: Angiographically normal LEFT ANTERIOR DESCENDING ARTERY: LAD: Tubular Calcified 50% Mid lesion in LAD OM 1: Luminal Irregularities 20% Proximal lesion in MARG3 OM 2: Luminal Irregularities 20% Proximal lesion in MARG3 RAMUS: Angiographically normal RIGHT CORONARY ARTERY: Angiographically normal COMPLICATIONS No Complications PROCEDURE MEDICATIONS Versed 1 mg IV Versed 1 mg IV Versed 1 mg IV Versed 1 mg IV Oxygen: 2 L/min via nasal cannula Baby Aspirin (81mg) 1 Tabs PO @ 12/19/2024 07:04:43 Heparin given IA 12/19/2024 08:35:34 Verapamil 2.5mg, Ntg 200mcgs, 2000 units of Heparin given IA 12/19/2024 08:35:34 SUMMARY OF HEMODYNAMIC DATA Time AIR REST ECG 07:07:31 AO 121/77 (96) SA 08:46:58 Signed By Ediht Truong MD On 12/25/2024 15:34:41 Edith Truong MD
== END 2024-12-19 10:45 | disposition home or self-care (01) ==
PROVIDERS: PCP Internal Medicine; Referring Provider Internal Medicine Cardiovascular Disease; Visit Provider Internal Medicine Cardiovascular Disease
DX: R94.39 Abnormal result of other cardiovascular function study (principal); Z68.43 Body mass index [BMI] 50.0-59.9, adult; E66.01 Morbid (severe) obesity due to excess calories; R06.09 Other forms of dyspnea; R07.89 Other chest pain; I10 Essential (primary) hypertension; R73.03 Prediabetes; G47.33 Obstructive sleep apnea (adult) (pediatric); Z79.82 Long term (current) use of aspirin; Z79.85 Long-term (current) use of injectable non-insulin antidiabetic drugs; Z79.899 Other long term (current) drug therapy; Z86.16 Personal history of COVID-19; Z86.73 Personal history of transient ischemic attack (TIA), and cerebral infarction without residual deficits; Z82.49 Family history of ischemic heart disease and other diseases of the circulatory system
CPT/HCPCS: 36415; 71046; 80048; 80061; 85025; 93454; 99152; 99153; Q9967; C1769; C1894

== ENCOUNTER 2025-08-12 11:01 | Emergency (ER) | payer MEDICAID, SELFPAY ==
[2025-08-12 11:03] VITALS: BP 117/95; PULSE 77; RESP 18; TEMP 36.9; O2SAT 100
[2025-08-12 11:04] VITALS: BMI 46.3
--- NOTE | 2025-08-12 11:37 | EDS_ITS ---
HPI HPI - GI History of Present Illness Chief Complaint: GI Bleed Narrative Narrative: 67-year-old female history of CVA, ALAYNA, iron deficiency anemia presents emergency department for complaint of GI bleed. Patient states that a week ago she had a lot of constipation and was impacted and newly disimpacted herself. Patient states that thereafter she had a lot of bleeding due to the irritation and has since been using Preparation H sitz bath's to help with her hemorrhoids. Patient states that she has known external and internal hemorrhoids denying any pain and denying any bleeding today. States that she called her primary care provider and they recommended her to come into the emergency department to have her blood work checked because she feels she may have lost a lot of blood. Denies any lightheadedness, dizziness, shortness of breath or chest pain. [facility] Medical History (Updated 12/06/24 @ 13:56 by Helena Tony) Morbid (severe) obesity due to excess calories Chest pain, exertional Bilateral lower extremity edema Pulmonary atelectasis ROUSE (dyspnea on exertion) Breast cyst Other and unspecified disc disorder of unspecified region ALAYNA treated with BiPAP Menorrhagia with irregular cycle Iron deficiency anemia Internal hemorrhoids without mention of complication External hemorrhoids without mention of complication Esophageal reflux Endometriosis Complex endometrial hyperplasia without atypia Bronchitis, chronic Anemia, unspecified Adjustment disorder with depressed mood Acute gastritis without mention of hemorrhage ALAYNA (obstructive sleep apnea) COVID-19 COVID Incontinence Chronic neck and back pain Stroke Knee pain Stomach ulcer Heart disease Lung disease Hypertension Home Medications ?Medication ?Instructions ?Recorded ?Last Taken ?Type Omeprazole [Prilosec] 40 mg PO DAILY 11/29/1603/08 History acyclovir 400 mg tablet (Zovirax) 400 mg PO BID PRN No t Specified 11/29/16 Unknown History bupropion HCl 150 mg 24 hr tablet, 150 mg PO QHS 11/29 Unknown History extended release (Wellbutrin XL) hydrocodone 7.5 mg-acetaminophen 1 ea PO TID PRN Pain 11/29/16 12/19/24 History 325 mg tablet ([place]) lisinopril 20 mg tablet 20 mg PO DAILY 11/29/1603/08 History methadone 10 mg tablet 10 mg PO TID 11/29/16 History paroxetine HCl 20 mg tablet 20 mg PO DAILY 11/29/16 History promethazine 25 mg tablet 25 mg PO Q6H PRN PRN Nausea 11/29/16 01/19/17 23:00 History ondansetron 4 mg disintegrating 4 mg PO Q8H PRN PRN Na usea #10 tabs 01/20/17 Unknown Rx tablet aspirin 81 mg tablet,delayed 81 mg PO QHS 06/17/1703/08 History release benzonatate 200 mg capsule 200 mg PO TID PRN Cough Unknown History magnesium chloride 71.5 mg 2 tab PO DAILY 12/01/19 Unk nown History (magnesium chloride) tablet,delayed release albuterol sulfate 90 mcg/actuation 2 puff inhalation Q 4H PRN PRN 11/19/24 Unknown History aerosol inhaler shortness of breath or wheez ing dulaglutide 4.5 mg/0.5 mL 4.5 mg subcut QWEEK 11/19/24 Unknown History subcutaneous pen injector famotidine 20 mg tablet 20 mg PO BID 11/19/24 History oxybutynin chloride 5 mg tablet 5 mg PO BID 11/19/24 0 12/19/24 History metoprolol succinate 25 mg 25 mg PO QDAY #90 tabs 11/1312/19/24 Rx tablet,extended release 24 hr naproxen sodium 220 mg tablet 220 mg PO TID PRN pain 0 11/28/24 Unknown History spironolactone 50 mg tablet 25 mg PO QDAY 12/06/24 Unk nown History Allergy/AdvReac Type Severity Reaction Status Date / Time nitrofurantoin (From Allergy Unknown Verified 08/12/25 11:02 Macrobid) propoxyphene (From Allergy Unknown Verified 08/12/25 11:02 Darvocet-N) cefaclor (From Ceclor) AdvReac Other Verified 08/12/25 11:02 Family History Mother Cancer Father Cancer Heart disease Myocardial infarction Brother Heart disease Myocardial infarction Surgical History (Updated 08/12/25 @ 11:12 by Diane Beyer) History of right shoulder surgery History of knee surgery History of hysterectomy History of cholecystectomy Social History Smoking Status: Former smoker EXAM Physical Exam Const Vital Signs: 08/12/25 11:03 Temperature 98.4 F Temperature Source Oral Pulse Rate 77 Respiratory Rate 18 Blood Pressure 117/95 H Blood Pressure Mean 102 Pulse Ox 100 Oxygen Delivery Method Room Air Resp normal respiratory effort and normal air movement Cardio regular rate and regular rhythm GI normal to inspection, nondistended, normoactive bowel sounds, soft to palpation, non-tender and non-distended Rectal Exam: normal sphincter tone, heme negative stool, internal hemorrhoid(s) and external hemorrhoid(s); Negative for prolapse, lesions, laceration, anal fissure or tenderness Extremity normal to inspection and full ROM Skin no rashes or lesions noted Skin Narrative: <2 sec capillary refill. Warm skin with good turgor. Not pale. MDM MDM MDM Narrative Medical decision making narrative: 67-year-old female history of CVA, ALAYNA, iron deficiency anemia presents emergency department for complaint of GI bleed. Patient states that a week ago she had a lot of constipation and was impacted and newly disimpacted herself. Patient states that thereafter she had a lot of bleeding due to the irritation and has since been using Preparation H sitz bath's to help with her hemorrhoids. Patient states that she has known external and internal hemorrhoids denying any pain and denying any bleeding today. States that she called her primary care provider and they recommended her to come into the emergency department to have her blood work checked because she feels she may have lost a lot of blood. Denies any lightheadedness, dizziness, shortness of breath or chest pain. Discharge Plan Triage Chief Complaint: GI Bleed ED Provider: Neida Hill Dx/Rx/DC Orders Prescriptions: No Action dulaglutide 4.5 mg/0.5 mL pen injector 4.5 mg subcut QWEEK oxybutynin chloride 5 mg tablet 5 mg PO BID albuterol sulfate 90 mcg/actuation HFA aerosol inhaler 2 puff inhalation Q4H PRN PRN (Reason: shortness of breath or wheezing) famotidine 20 mg tablet 20 mg PO BID naproxen sodium 220 mg tablet 220 mg PO TID PRN (Reason: pain) metoprolol succinate 25 mg tablet extended release 24 hr 25 mg PO QDAY Qty: 90 3RF methadone 10 MG tablet 10 mg PO TID Patient Comments: pain lisinopril 20 MG tablet 20 mg PO DAILY Patient Comments: blood pressure/heart acyclovir [Zovirax] 400 MG tablet 400 mg PO BID PRN (Reason: Not Specified) Patient Comments: antiviral hydrocodone-acetaminophen [[place]] 1 TABLET tablet 1 ea PO TID PRN (Reason: Pain) Patient Comments: pain paroxetine HCl 20 MG tablet 20 mg PO DAILY Patient Comments: mental health promethazine 25 MG tablet 25 mg PO Q6H PRN PRN (Reason: Nausea) Patient Comments: nausea bupropion HCl [Wellbutrin XL] 150 MG tablet extended release 24 hr 150 mg PO QHS Patient Comments: mental health Omeprazole [Prilosec] 40 MG capsule 40 mg PO DAILY Patient Comments: acid reflux ondansetron 4 MG tablet 4 mg PO Q8H PRN PRN (Reason: Nausea) Qty: 10 0RF aspirin 81 MG tablet 81 mg PO QHS Patient Comments: heart health benzonatate 200 MG capsule 200 mg PO TID PRN (Reason: Cough) magnesium chloride 71.5 MG tablet,delayed release (DR/EC) 2 tab PO DAILY spironolactone 50 mg tablet 25 mg PO QDAY Primary Care Provider: Keila Sullivan Referrals: Keila Sullivan MD [Primary Care Provider, Internal Medicine] Print Language: Croatian
--- NOTE | 2025-08-12 11:37 | ED.VIS.GI ---
HPI HPI - GI History of Present Illness Chief Complaint: GI Bleed Narrative Narrative: 67-year-old female history of CVA, ALAYNA, iron deficiency anemia presents emergency department for complaint of GI bleed. Patient states that a week ago she had a lot of constipation and was impacted and newly disimpacted herself. Patient states that thereafter she had a lot of bleeding due to the irritation and has since been using Preparation H sitz bath's to help with her hemorrhoids. Patient states that she has known external and internal hemorrhoids denying any pain and denying any bleeding today. States that she called her primary care provider and they recommended her to come into the emergency department to have her blood work checked because she feels she may have lost a lot of blood. Denies any lightheadedness, dizziness, shortness of breath or chest pain. [facility] Medical History (Updated 08/12/25 @ 12:[address] Neida Hill, DO) Morbid (severe) obesity due to excess calories Chest pain, exertional Bilateral lower extremity edema Pulmonary atelectasis ROUSE (dyspnea on exertion) Breast cyst Other and unspecified disc disorder of unspecified region ALAYNA treated with BiPAP Menorrhagia with irregular cycle Iron deficiency anemia Internal hemorrhoids without mention of complication External hemorrhoids without mention of complication Esophageal reflux Endometriosis Complex endometrial hyperplasia without atypia Bronchitis, chronic Anemia, unspecified Adjustment disorder with depressed mood Acute gastritis without mention of hemorrhage ALAYNA (obstructive sleep apnea) COVID-19 COVID Incontinence Chronic neck and back pain Stroke Knee pain Stomach ulcer Heart disease Lung disease Hypertension Home Medications ?Medication ?Instructions ?Recorded ?Last Taken ?Type Omeprazole [Prilosec] 40 mg PO DAILY 11/29/16 12/19/24 History acyclovir 400 mg tablet (Zovirax) 400 mg PO BID PRN Not Specified 11/29/16 Unknown History bupropion HCl 150 mg 24 hr tablet, 150 mg PO QHS 11/29/16 Unknown History extended release (Wellbutrin XL) hydrocodone 7.5 mg-acetaminophen 1 ea PO TID PRN Pain 11/29/16 12/19/24 History 325 mg tablet ([place]) lisinopril 20 mg tablet 20 mg PO DAILY 11/29/16 12/19/24 History methadone 10 mg tablet 10 mg PO TID 11/29/16 12/19/24 History paroxetine HCl 20 mg tablet 20 mg PO DAILY 11/29/16 12/19/24 History promethazine 25 mg tablet 25 mg PO Q6H PRN PRN Nausea 11/29/16 01/19/17 23:00 History ondansetron 4 mg disintegrating 4 mg PO Q8H PRN PRN Nausea #10 tabs 01/20/17 Unknown Rx tablet aspirin 81 mg tablet,delayed 81 mg PO QHS 06/17/17 12/19/24 History release benzonatate 200 mg capsule 200 mg PO TID PRN Cough 12/01/19 Unknown History magnesium chloride 71.5 mg 2 tab PO DAILY 12/01/19 Unknown History (magnesium chloride) tablet,delayed release albuterol sulfate 90 mcg/actuation 2 puff inhalation Q4H PRN PRN 11/19/24 Unknown History aerosol inhaler shortness of breath or wheezing dulaglutide 4.5 mg/0.5 mL 4.5 mg subcut QWEEK 11/19/24 Unknown History subcutaneous pen injector famotidine 20 mg tablet 20 mg PO BID 11/19/24 12/19/24 History oxybutynin chloride 5 mg tablet 5 mg PO BID 11/19/24 12/19/24 History metoprolol succinate 25 mg 25 mg PO QDAY #90 tabs 11/28/24 12/19/24 Rx tablet,extended release 24 hr naproxen sodium 220 mg tablet 220 mg PO TID PRN pain 11/28/24 Unknown History spironolactone 50 mg tablet 25 mg PO QDAY 12/06/24 Unknown History Allergy/AdvReac Type Severity Reaction Status Date / Time nitrofurantoin (From Allergy Unknown Verified 08/12/25 11:02 Macrobid) propoxyphene (From Allergy Unknown Verified 08/12/25 11:02 Darvocet-N) cefaclor (From Ceclor) AdvReac Other Verified 08/12/25 11:02 Family History Mother Cancer Father Cancer Heart disease Myocardial infarction Brother Heart disease Myocardial infarction Surgical History (Updated 08/12/25 @ 11:12 by Diane Beyer) History of right shoulder surgery History of knee surgery History of hysterectomy History of cholecystectomy Social History Smoking Status: Former smoker EXAM Physical Exam Const Vital Signs: 08/12/25 11:03 08/12/25 12:56 Temperature 98.4 F 98.3 F Temperature Source Oral Pulse Rate 77 78 Respiratory Rate 18 18 Blood Pressure 117/95 H 99/74 Blood Pressure Mean 102 82 Pulse Ox 100 97 Oxygen Delivery Method Room Air Resp normal respiratory effort and normal air movement Cardio regular rate and regular rhythm GI normal to inspection, nondistended, normoactive bowel sounds, soft to palpation, non-tender and non-distended Rectal Exam: normal sphincter tone, heme negative stool, internal hemorrhoid(s) and external hemorrhoid(s); Negative for prolapse, lesions, laceration, anal fissure or tenderness Extremity normal to inspection and full ROM Skin no rashes or lesions noted Skin Narrative: <2 sec capillary refill. Warm skin with good turgor. Not pale. MDM MDM MDM Narrative Medical decision making narrative: 67-year-old female history of CVA, ALAYNA, iron deficiency anemia presents emergency department for complaint of GI bleed. Patient states that a week ago she had a lot of constipation and was impacted and newly disimpacted herself. Patient states that thereafter she had a lot of bleeding due to the irritation and has since been using Preparation H sitz bath's to help with her hemorrhoids. Patient states that she has known external and internal hemorrhoids denying any pain and denying any bleeding today. States that she called her primary care provider and they recommended her to come into the emergency department to have her blood work checked because she feels she may have lost a lot of blood. Denies any lightheadedness, dizziness, shortness of breath or chest pain., Physical exam abdomen soft, nontender. exam performed showing external hemorrhoids with no evidence of thrombosis. I did not note any anal fissures or positive blood. Palpable internal hemorrhoids. On labs hemoglobin is baseline anemia of 10.4 no evidence of acute blood loss. Vitals in normal limits and skin does not appear pale. Less than 2-second capillary refill. Do not feel CT imaging needed at this time. Updated patient on these findings and is agreeable for discharge recommended returning if any worsening symptoms are lightheadedness, dizziness for need for repeat lab work. Did give referral to see gastroenterology and is agreeable to this Lab Data Attestation: I reviewed the patient's lab results. Lab results narrative: Labs reviewed showing no evidence of leukocytosis with hemoglobin of 10.4 consistent with previous lab work which appears to be patient's baseline. Creatinine 1.2, no evidence of MCKENNA LFTs within normal limits. Labs: Laboratory Results - last 24 hr 08/12/25 11:50 WBC 7.9 RBC 3.79 L Hgb 10.4 L Hct 32.1 L MCV 84.7 MCH 27.4 MCHC 32.4 RDW Std Deviation 41.1 RDW Coeff of Tracey 13.3 Plt Count 274 MPV 9.6 Immature Gran % (Auto) 0.400 Neut % (Auto) 55.5 Lymph % (Auto) 33.0 [place] % (Auto) 8.2 Eos % (Auto) 2.4 Baso % (Auto) 0.5 Absolute Neuts (auto) 4.4 Absolute Lymphs (auto) 2.60 Nucleated RBC % 0 Sodium 135 Potassium 5.4 H Chloride 101 Carbon Dioxide 25.3 Anion Gap 9 BUN 48 H Creatinine 1.20 Estim Creat Clear Calc 65.93 Est GFR (MDRD) Non-Af 50 L BUN/Creatinine Ratio 39.8 H Glucose 108 H Calcium 10.9 Total Bilirubin 0.27 AST 12 ALT 6 Alkaline Phosphatase 88 Total Protein 7.2 Albumin 4.2 Globulin 2.9 Albumin/Globulin Ratio 1.4 Discharge Plan Triage Chief Complaint: GI Bleed ED Provider: Neida Hill Dx/Rx/DC Orders Clinical Impression: Rectal bleeding Prescriptions: No Action dulaglutide 4.5 mg/0.5 mL pen injector 4.5 mg subcut QWEEK oxybutynin chloride 5 mg tablet 5 mg PO BID albuterol sulfate 90 mcg/actuation HFA aerosol inhaler 2 puff inhalation Q4H PRN PRN (Reason: shortness of breath or wheezing) famotidine 20 mg tablet 20 mg PO BID naproxen sodium 220 mg tablet 220 mg PO TID PRN (Reason: pain) metoprolol succinate 25 mg tablet extended release 24 hr 25 mg PO QDAY Qty: 90 3RF methadone 10 MG tablet 10 mg PO TID Patient Comments: pain lisinopril 20 MG tablet 20 mg PO DAILY Patient Comments: blood pressure/heart acyclovir [Zovirax] 400 MG tablet 400 mg PO BID PRN (Reason: Not Specified) Patient Comments: antiviral hydrocodone-acetaminophen [[place]] 1 TABLET tablet 1 ea PO TID PRN (Reason: Pain) Patient Comments: pain paroxetine HCl 20 MG tablet 20 mg PO DAILY Patient Comments: mental health promethazine 25 MG tablet 25 mg PO Q6H PRN PRN (Reason: Nausea) Patient Comments: nausea bupropion HCl [Wellbutrin XL] 150 MG tablet extended release 24 hr 150 mg PO QHS Patient Comments: mental health Omeprazole [Prilosec] 40 MG capsule 40 mg PO DAILY Patient Comments: acid reflux ondansetron 4 MG tablet 4 mg PO Q8H PRN PRN (Reason: Nausea) Qty: 10 0RF aspirin 81 MG tablet 81 mg PO QHS Patient Comments: heart health benzonatate 200 MG capsule 200 mg PO TID PRN (Reason: Cough) magnesium chloride 71.5 MG tablet,delayed release (DR/EC) 2 tab PO DAILY spironolactone 50 mg tablet 25 mg PO QDAY Primary Care Provider: Keila Sullivan Referrals: Keila Sullivan MD [Primary Care Provider, Internal Medicine] Friend,DO Miguel [Med Staff - Active Staff, Gastroenterology] Activity Restrictions/Additional Instructions: Please follow-up with your primary care provider within the next 2 days. Patient declined. Urine gastroenterology gastroenterology regarding her symptoms. Continue using Preparation H and sitz bath's as needed for rectal bleeding and return if you develop any dizziness, lightheadedness or feel like you are going to pass out. Your labs showing no evidence of acute blood loss today and you are hemoglobin appears to be similar from previous blood work. Print Language: [place] Disposition Disposition: Home, Self Care Discharge Date/Time: 08/12/25 13:00
[2025-08-12 11:58] LABS: Hematocrit 32.1 % (37-47); Hemoglobin 10.4 g/dL (12.0-15.0); Immature Granulocytes Count 0.030 X10^3/uL (0.0-0.0); Mean Corp Hgb Conc 32.4 g/dL (32-36); Mean Corpuscular Volume 84.7 fL (81-99); Mean Platelet Vol. 9.6 fl (6.2-12.0); NRBC Flagged by Analyzer 0 % (0-5); Platelet Count 274 K/mm3 (150-450); RBC Distribution Width CV 13.3 % (11.6-14.6); RBC Distribution Width SD 41.1 fl (35.1-43.9); Red Blood Count 3.79 M/mm3 (4.2-5.4); White Blood Count 7.9 K/mm3 (4.4-11.0)
[2025-08-12 12:27] LABS: AST(SGOT) 12 U/L (<=31); Alanine Aminotransfer ALT/SGPT 6 U/L (<=34); Albumin, Serum 4.2 g/dL (3.4-4.8); Alkaline Phosphatase 88 U/L (35-104); Anion Gap 9 (7-18); BUN 48 mg/dL (4-19); BUN/Creat Ratio 39.8 RATIO (10-20); Calcium,Total 10.9 mg/dL (7.6-11.0); Carbon Dioxide 25.3 mmol/L (20.0-29.0); Chloride 101 mmol/L (96-106); Estimated Creatinine Clearance 65.93 ml/min (50-250); Globulin 2.9 g/dL (2.2-4.2); Glucose 108 mg/dL (70-99); Potassium 5.4 mmol/L (3.5-5.1)
[2025-08-12 12:56] VITALS: BP 99/74; PULSE 78; RESP 18; TEMP 36.8; O2SAT 97
== END 2025-08-12 13:00 | disposition home or self-care (01) ==
PROVIDERS: Emergency Provider Student in an Organized Health Care Education/Training Program; PCP Internal Medicine; Visit Provider Student in an Organized Health Care Education/Training Program
DX: K62.5 Hemorrhage of anus and rectum (principal); I10 Essential (primary) hypertension; Z79.899 Other long term (current) drug therapy; Z87.891 Personal history of nicotine dependence
CPT/HCPCS: 36415; 80053; 85025; 99282